=== PATIENT | male | born 1940 | race Caucasian/White ===

== ENCOUNTER 2024-08-03 19:22 | Emergency (ER) | payer OTHER, SELFPAY ==
[2024-08-03 19:26] VITALS: BP 102/57
[2024-08-03] MEDS: PERCOCET 5/325 1 TABLET PO (21:14)
[2024-08-03 22:21] LABS: % Basophils 0.3 % (0-2); % Eosinophils 0.9 % (0-6); % Immature Granulocytes 0.3 % (0-0.5); % Lymphocytes 11.8 % (20.5-51.1); % Monocytes 7.9 % (1.7-9.3); % Neutrophils 78.8 % (42.2-75.2); Absolute Eosinophils 0.1 10^3/uL (0-0.7); Absolute Lymphocytes 1.5 10^3/uL (1.2-3.4); Absolute Neutrophils 10.1 10^3/uL (1.4-6.5); Hematocrit 40.1 % (39.0-52.0); Mean Corp Hgb Conc. 34.9 g/dL (33.0-37.0); Mean Corpuscular Hgb 31.4 pg (27.0-31.0); Mean Corpuscular Volume 89.9 fL (80.0-94.0); Mean Platelet Volume 10.9 fL (7.4-10.4); Nucleated Red Blood Cells % 0 % (-); Platelet Count 130 10^3/uL (130-400); Red Blood Cell Count 4.46 10^6/uL (4.70-6.10); Red Cell Dist. Width 12.7 % (11.5-14.5); White Blood Cell Count 12.9 10^3/uL (4.8-10.8)
[2024-08-03 22:31] LABS: ALT (SGPT) 20 U/L (0-50); AST (SGOT) 22 U/L (17-59); Albumin 4.1 g/dl (3.5-5.0); Alkaline Phosphatase 69 U/L (38-126); Blood Urea Nitrogen 22 mg/dl (9-20); Calcium 9.2 mg/dl (8.4-10.2); Carbon Dioxide 25 mmol/L (22-30); Chloride 105 mmol/L (98-107); Glucose 101 mg/dl (70-99); Potassium 3.8 mmol/L (3.5-5.1); Sodium 137 mmol/L (135-145); Total Bilirubin 0.5 mg/dl (0.2-1.3); Total Protein 6.4 g/dl (6.3-8.2); eGFR > 60.00
[2024-08-03] MEDS: TORADOL 15 MG IV (22:41)
--- NOTE | 2024-08-03 23:21 | ED.MUSCINJ ---
HPI-Injury
General
Chief Complaint: Musculo-Skeletal Complaint
Source: patient
Exam Limitations: none
Time Seen by Provider: 08/03/24 20:18
Nursing documentation reviewed up to this point in time: agreed with
History of Present Illness-Injury
Is this injury a work related problem?: No
Is pt an associate of [facility]/[place]?: No
Initial Injury comments:
Patient to ED wtih complaint of right knee pain. Symptoms started yesterday. Denies fever/chills. NO history of trauma. Brought to ED by spouse for evall
Past History
Past History
ED Past Medical History: CAD and VA
ED Past Surgical History: Cardiac (Stents)
Social History
Tobacco: Non-smoker
Alcohol: None
Drug: None
Personal:
Living: with family
Employment: Retired
Family History
Family History: Other (Noncontributory)
Review of Systems
Review of Systems
Allergies reviewed?: Yes
All Other Systems: ROS reviewed and negative except as documented in HPI and ROS
Constitutional: Reports no symptoms
EENT: Reports no symptoms
Respiratory: Reports no symptoms
Cardiac: Reports no symptoms
ABD/GI: Reports no symptoms
Musculoskeletal: Reports joint pain (RIght knee pain)
Skin: Reports no symptoms
Neurological: Reports no symptoms
Psychiatric: Reports no symptoms
Musculoskeletal Injury Exam
Musculoskeletal Injury Exam
Right Knee:
Pain with Movement?: Moderate
Tender to palpation?: Moderate
Soft tissue swelling?: None
External deformity and angulation?: None
Joint effusion?: None
Contusion?: None
Hematoma-local bleeding into tissue?: None
Strain- Sprain- Tear (Connective tissue injury)?: None
Crepitus with movement?: No
Joint instability?: No
Malalignment/deformity?: No
Range of motion: Limited
Distal skin color and temperature: normal-warm & good color
Capillary Refill: normal
Normal distal neurovascular exam?: Yes
Peripheral Pulses: posterior tibial (right): 3+ and dorsalis pedis (right): 3+
Phy Exam
General Physical Exam
General Presentation: well appearing and no apparent distress
General age: appears stated age
General Skin: warm and dry
General Habitus: normal
General Mental: alert
Musculoskeletal Exam
Musculoskeletal Exam: neuro vasc intact
Skin Exam
Skin Exam: normal color, warm/dry and no rash
Psychiatric Exam
Psychiatric Exam: normal mood/affect
Injury Course
Orders/Labs/Results
Orders:
Orders
08/03/24 19:33
Knee, Right 4 or More Views [CR Knee- Right 4 Or More View*] Urgent
Comment:
Reason For Exam: pain and swelling
08/03/24 21:05
Oxycodone/Acetaminophen [Percocet 5/325] 1 tablet PO NOW STA
08/03/24 22:12
Complete Blood Count/With Diff Urgent
Comprehensive Metabolic Panel Urgent
08/03/24 22:34
Ketorolac [Toradol] 15 mg IV NOW STA
08/03/24 23:25
Case Management Consult ONCE
Case Management Consult: VN/Home Care
Abnormal Lab Results
08/03/24
22:12
WBC 12.9 H 10^3/uL
(4.8-10.8)
RBC 4.46 L 10^6/uL
(4.70-6.10)
MCH 31.4 H pg
(27.0-31.0)
MPV 10.9 H fL
(7.4-10.4)
Absolute Neuts (auto) 10.1 H 10^3/uL
(1.4-6.5)
Absolute Monos (auto) 1.0 H 10^3/uL
(0.1-0.6)
Neutrophils % 78.8 H %
(42.2-75.2)
Lymphocytes % 11.8 L %
(20.5-51.1)
BUN 22 H mg/dl
(9-20)
Glucose 101 H mg/dl
(70-99)
08/03/24 22:12
08/03/24 22:12
*Radiology
Radiology exam reviewed: radiology read reviewed
*Pulse Oximetry
Patient hypoxic: no
*Critical Care Note
Total Time (30-74mins, 75-104mins- exclusive of procedures): Not Applicable
Update Note
Update Note:
Patient to ED wtih complaint of right knee pain. No history of trauma. No redness or swelling to knee. Neurovascular intact. Placed in a knee immobilizer and givn walker. Able to ambulate in dept. without difficulty. Will discharge home.
would like to speak with case management regarding home services vs patient placement in the future. Consult placed.
ED Attending Note
-
Portions of this chart may have been created with voice recognition software.� Occasional wrong word or��sound alike� substitutions may have occurred due to the inherent limitations of voice recognition software.
Discharge Plan
Departure
Patient Disposition: Home (Routine Discharge)
Date of Disposition: 08/03/24
Time of Disposition: 22:53
Patient with high blood pressure during this ER visit?: No
Condition: Good
Covid-19: Not Applicable
Discharge Problem:
Acute knee pain
Instructions: Knee Immobilizer (DC), Knee Pain (DC), Using Cold for Pain
Prescriptions:
New
hydrocodone-acetaminophen 5-325 mg tablet
1 tab PO Q4H PRN (Reason: Pain) Qty: 10 0RF
No Action
levothyroxine 50 MCG tablet
50 mcg PO MOTUTHFRSA
levothyroxine 25 MCG tablet
25 mcg PO SUWE
aspirin 81 MG tablet,delayed release (DR/EC)
81 mg PO DAILY
simvastatin 40 MG tablet
40 mg PO HS
ascorbic acid (vitamin C) [Vitamin C] 500 MG tablet
500 mg PO Q48H
multivitamin with folic acid [Tab-A-Maritza] 1 TABLET tablet
1 tab PO DAILY
Referrals:
Devaughn Gaston MD [Family Provider] - Tomorrow
Interventions
Interventions:
*Risk Screen - Suicide Last Done: 08/03/24 19:26
*General Assessment Last Done: 08/03/24 19:26
*Neglect/Abuse Screening Last Done: 08/03/24 19:26
ED- Fall Risk Assessment Last Done: 08/03/24 19:26
*ED COVID-19 Vaccine History Last Done: 08/03/24 19:26
*Nursing Disposition Last Done: 08/03/24 23:28
ED-Musculoskeletal Assessment Last Done: 08/03/24 21:23
Discharge Date and Time
Discharge Date/Time: 08/03/24 23:28
Print Language: LAO
--- NOTE | 2024-08-05 09:56 | CM ---
CM consult for VN services. CM placed a referral via [facility] to [facility].
== END 2024-08-03 23:28 | disposition home or self-care (01) ==
LOC: EMR 19:22
PROVIDERS: Nurse Practitioner; EMERGENCY PHYSICIAN Emergency Medicine; FAMILY PHYSICIAN Family Medicine
DX: M25.561 Pain in right knee (principal)
CPT/HCPCS: 99284; 96374; 29505; 73564; 80053; 85025

== ENCOUNTER 2025-04-02 19:16 | Observation (INO) | payer OTHER, SELFPAY ==
[2025-04-02 14:00] VITALS: BP 122/67
--- NOTE | 2025-04-02 15:13 | ED.GENMED ---
History of Present Illness
General
Chief Complaint: Crisis Evaluation
Source: patient and family
Exam Limitations: dementia
Time Seen by Provider: 04/02/25 15:02
History of Present Illness
History of Present Illness:
See MDM
Past History
Past History
ED Past Medical History: CAD, MD and Other (Dementia)
ED Past Surgical History: Cardiac (Stents)
Social History
Tobacco: Non-smoker
Alcohol: None
Drug: None
Personal:
Living: with family
Employment: Retired
Family History
Family History: Other (Noncontributory)
Phy Exam
Physical Exam
Physical Exam:
See MDM
Course
Orders/Labs/Results
Orders:
Orders
04/02/25 14:04
Crisis Consult Urgent
Reason for Consult: worsening dementia
04/02/25 15:23
Complete Blood Count/With Diff Urgent
Comprehensive Metabolic Panel Urgent
04/02/25 15:55
Urinalysis Reflex To Culture Urgent
Date Specimen was Collected: 04/02/25
Time Specimen was Collected: 15:27
Urine Microscopic Reflex Cult Urgent
Urine Culture Urgent
HOLLY Source: U
Specimen Description:
Date Specimen was Collected: 04/02/25
Time Specimen was Collected: 15:27
Abnormal Lab Results
04/02/25 04/02/25
15:23 15:55
RBC 4.56 L 10^6/uL
(4.70-6.10)
MPV 10.5 H fL
(7.4-10.4)
Absolute Neuts (auto) 7.8 H 10^3/uL
(1.4-6.5)
Absolute Monos (auto) 0.8 H 10^3/uL
(0.1-0.6)
Neutrophils % 76.3 H %
(42.2-75.2)
Lymphocytes % 14.0 L %
(20.5-51.1)
Chloride 109 H mmol/L
(98-107)
Glucose 110 H mg/dl
(70-99)
Ur Occult Blood Reflex 2+ A
(Negative)
Leukocyte Esterase Rfl 2+ A
(Negative)
Urine Albumin (Reflex) 1+ A
(Neg - Trace)
04/02/25 15:23
04/02/25 15:23
Vital Signs
Initial and Last Documented VS:
Initial Vital Signs
Temp Pulse Resp BP Pulse Ox
98.3 F 69 18 122/67 98
04/02/25 14:00 04/02/25 14:00 04/02/25 14:00 04/02/25 14:00 04/02/25 14:00
Last Documented Vital Signs
Temp Pulse Resp BP Pulse Ox
98.3 F 69 18 122/67 98
04/02/25 14:00 04/02/25 14:00 04/02/25 14:00 04/02/25 14:00 04/02/25 15:16
MDM/Problems Addressed
Differential Diagnosis Includes:
Note:
CHIEF COMPLAINT(S)
Concerns about dementia management and safety due to driving.
HISTORY OF PRESENT ILLNESS
The patient is an 84-year-old male with a history of dementia, presenting with behavioral issues related to his condition. Despite advice against driving, he continues to do so, posing a potential safety risk. His spouse reports he often acts
against her recommendations and expresses fear for his safety, especially at night when she feels unable to rest due to his potential actions. The patient reportedly rejects his diagnosis and is unwilling to consider alternative living arrangements.
There is an ongoing concern regarding the management of his dementia. The spouse voices significant distress about his safety and her own, secondary to his unpredictability and disregard for medical advice. Recent engagements with healthcare
professionals suggested possible psychiatric evaluation and blood work, but no emergent findings have been reported. The immediate intervention includes starting basic blood work and monitoring the patient�s condition to inform further management.
PAST MEDICAL AND SURGICAL HISTORY
Dementia.
CHRONIC MEDICAL CONDITIONS SIGNIFICANTLY AFFECTING CARE
Dementia.
ADDITIONAL HISTORY OBTAINED FROM SOURCES OTHER THAN THE PATIENT
The patients spouse provided detailed information about his behavior, safety concerns, and interactions with healthcare providers. She noted the patient�s continued driving despite recommendations otherwise and described their challenges in managing
his condition due to his non-compliance.
MEDICATIONS
The spouse mentions the patient is on a medication for dementia, though the specific medication is not identified.
PHYSICAL EXAM
General: Alert, no acute distress. Sitting in bed comfortably
Skin: Warm, dry.
Head: Normocephalic, atraumatic
Neck: Appears supple, trachea midline.
Eyes, Ears, Nose, Mouth, and Throat: Oral mucosa moist.
Cardiovascular: No signs of cyanosis
Respiratory: Respirations are non-labored.
Abdomen: Non-distended
Musculoskeletal: No deformities
Neurological: No focal neurological deficit observed.
Psychiatric: Cooperative, appropriate mood and affect.
PROBLEM LIST
Acute Problems:
- Safety concerns related to driving and dementia-related behavior
- Stress and concern of the spouse
Chronic Problems:
- Dementia
PLAN
- Initiate basic blood work and urine analysis to rule out any acute medical issues such as electrolyte imbalances or urinary tract infection.
- Engage crisis farm management agent to discuss possible interventions.
- Discuss the possibility of alternative living arrangements and manage expectations about the likelihood of home return.
- Consider admission for observation and management potential based on findings.
- Address safety concerns by assessing the patients capacity to make decisions regarding his health and well-being.
DIFFERENTIAL DIAGNOSIS
The Differential Diagnosis includes, in no particular order and is not limited to:
- Dementia-related cognitive decline
- Depression secondary to dementia
- Urinary tract infection
- Electrolyte imbalance
- Drug-induced cognitive changes
- Delirium due to other causes
- Vascular dementia
- Alzheimers disease
- Frontotemporal dementia
- Mixed dementia
04/02/25 - 15:20
The crisis team was involved, and there was an attempt to initiate a 302 involuntary commitment, but it was denied.
SUMMARY OF ENCOUNTER
The patient, an 84-year-old male with a history of dementia, presented with concerns about dementia management and safety, particularly related to his continued driving despite medical advice. His spouse reports significant distress, fearing for
both their safety due to his unpredictable behavior and disregard for medical recommendations. Given the potential safety hazard at home without 24-hour surveillance and the progression of his dementia, the decision was made to admit him to the
hospital for further evaluation and management, including placement considerations.
DISPOSITION
Admit to the hospital service for further evaluation and management.
ASSESSMENT
Likely progression of dementia causing safety concerns, particularly related to driving and behavioral issues.
PLAN
- Admit to the hospital for workup and evaluation.
- Involve case management for discussion of placement options due to safety concerns.
- Monitor and evaluate progression of dementia.
- Address potential safety hazards and management options with spouse.
MEDICAL DECISION MAKING
-Complexity of Data Reviewed: Chronic conditions affecting care include dementia. Differential diagnosis includes dementia-related cognitive decline, depression secondary to dementia, urinary tract infection, electrolyte imbalance, drug-induced
cognitive changes, delirium due to other causes, vascular dementia, Alzheimers disease, frontotemporal dementia, mixed dementia.
-Data:
Category 2
Clinical information was obtained from an independent historian, specifically the patients spouse, who provided details about his behavior and safety concerns.
Category 3
Discussion of management with other healthcare providers, including potential involvement of case management for placement due to safety hazards.
DIAGNOSIS
- Dementia without behavioral disturbance (F03.90)
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
*Pulse Oximetry
SaO2: 98
Oxygen Mode of Delivery: Room air
Patient hypoxic: no
*Critical Care Note
Total Time (30-74mins, 75-104mins- exclusive of procedures): Not Applicable
ED Attending Note
-
Portions of this chart may have been created with voice recognition software.� Occasional wrong word or��sound alike� substitutions may have occurred due to the inherent limitations of voice recognition software.
Discharge Plan
Departure
Patient Disposition: Admit
Date of Disposition: 04/02/25
Time of Disposition: 16:18
Admit to: Med/Surg
Presentation/result/management discussed w/ accepting MD/DO: Hospitalist
Discharge Problem:
Confusion, Dementia
Prescriptions:
No Action
levothyroxine 50 MCG tablet
50 mcg PO MOTUTHFRSA
levothyroxine 25 MCG tablet
25 mcg PO SUWE
aspirin 81 MG tablet,delayed release (DR/EC)
81 mg PO DAILY
simvastatin 40 MG tablet
40 mg PO HS
ascorbic acid (vitamin C) [Vitamin C] 500 MG tablet
500 mg PO Q48H
multivitamin with folic acid [Tab-A-Maritza] 1 TABLET tablet
1 tab PO DAILY
hydrocodone-acetaminophen 5-325 mg tablet
1 tab PO Q4H PRN (Reason: Pain) Qty: 10 0RF
Referrals:
Devaughn Gaston MD [Family Provider, Family Practice]
Interventions
Interventions:
*Risk Screen - Suicide Last Done: 04/02/25 14:00
*General Assessment Last Done: 04/02/25 14:00
*Neglect/Abuse Screening Last Done: 04/02/25 14:00
*ED- Fall Risk Assessment Last Done: 04/02/25 15:33
*ED COVID-19 Vaccine History Last Done: 04/02/25 15:33
ED- Neurological Assessment Last Done: 04/02/25 15:33
ED-Psychological Assessment Last Done: 04/02/25 15:33
ED Swallowing Screen Last Done: 04/02/25 15:33
Discharge Date and Time
Print Language: SERBIAN
[2025-04-02 15:32] VITALS: BMI 22.1
[2025-04-02 15:41] LABS: Hematocrit 41.7 % (39.0-52.0); Hemoglobin 13.9 g/dL (13.0-18.0); Mean Corp Hgb Conc. 33.3 g/dL (33.0-37.0); Mean Corpuscular Volume 91.4 fL (80.0-94.0); Nucleated Red Blood Cells % 0 % (-); Platelet Count 140 10^3/uL (130-400); Red Cell Dist. Width 13.1 % (11.5-14.5)
[2025-04-02 15:53] LABS: ALT (SGPT) 31 U/L (0-50); AST (SGOT) 29 U/L (17-59); Albumin 4.2 g/dl (3.5-5.0); Alkaline Phosphatase 64 U/L (38-126); Blood Urea Nitrogen 17 mg/dl (9-20); Calcium 9.2 mg/dl (8.4-10.2); Carbon Dioxide 28 mmol/L (22-30); Chloride 109 mmol/L (98-107); Estimated Creatinine Clearance 63 ml/min; Glucose 110 mg/dl (70-99); Potassium 4.1 mmol/L (3.5-5.1); Sodium 140 mmol/L (135-145); Total Protein 6.6 g/dl (6.3-8.2); eGFR > 60.00
[2025-04-02 16:09] LABS: Urine Character Clear (Clear)
[2025-04-02 16:21] LABS: Urine Squamous Cell 0-2 /LPF (Few); Urine Urothelial Cell 0-2 /LPF (FEW)
[2025-04-02 16:22] LABS: Urine White Cell 16-20 /HPF (0-5)
--- NOTE | 2025-04-02 16:30 | HPS.HSE ---
Family Physician
-
Family Physician: Devaughn Gaston
Chief Complaint
-
worsening dementia
History of Present Illness
Mr. Kenny Ferro is a 84 yo man with hx dementia, CAD s/p PCI, HLD, Hypothyroidism who was brought in to the ER after noticed he took the car
when he is not supposed to be driving. is worried about caring for patient at home.
reports having to lock doors at night. Patient hallucinates and doesn't listen to her. This has been progressive over past 6 months.
No recent fevers/chills or reports of pain. No recent falls. Patient denies using cane or walker.
Patient unable to give significant further history.
Medical History
Past Medical History
Past Medical History: Reports Other (dementia, CAD s/p PCI, HLD, Hypothyroidism )
Past Surgical History: Reports Other
Social History
Unable to obtain full social history at this time due to: Dementia
Family History
Family History: Not pertinent
Allergies / Home Medications
Allergies reflects when Allergies were last updated in [facility].
Home Medications with original date entered in [facility]
Allergy/Medication List:
Allergies
Allergy/AdvReac Type Severity Reaction Status Date / Time
No Known Allergies Allergy Verified 04/02/25 14:00
Home Medications
levothyroxine 50 mcg tablet 50 mcg PO DAILY 01/18/14
aspirin 81 mg tablet,delayed release 81 mg PO DAILY 11/25/15
simvastatin 40 mg tablet 40 mg PO HS 11/25/15
Review of Systems
-
History Source: Patient
A 12 point ROS was completed and negative except as noted: Yes
Physical Exam
Vital Signs
Vital Signs
Temp Pulse Resp BP Pulse Ox
98.3 F 69 18 122/67 98
04/02/25 14:00 04/02/25 14:00 04/02/25 14:00 04/02/25 14:00 04/02/25 15:16
Physical Exam
General: No Apparent Distress
HEENT: PERRLA
Respiratory: Clear; No Wheezes
Cardiac: S1/S2 and Regular Rhythm
GI: Soft and Non Tender
Musculoskeletal: No Edema
Skin: Warm and Dry; No Rash
Neuro: No Oriented
Psych: Calm
Laboratory Results
-
04/02/25 15:23
04/02/25 15:23
Laboratory Results
Total Bilirubin 0.4 mg/dl (0.2-1.3) 04/02/25 15:23
AST 29 U/L (17-59) 04/02/25 15:23
ALT 31 U/L (0-50) 04/02/25 15:23
Alkaline Phosphatase 64 U/L (38-126) 04/02/25 15:23
Data Reviewed
-
Diagnostic Radiology: Report Reviewed by me
Lab Data: Labs Reviewed by me
Impression/Plan
-
Mr. Kenny Ferro is a 84 yo man with hx dementia, CAD s/p PCI, HLD, Hypothyroidism who was brought in to the ER after noticed he took the car
when he is not supposed to be driving. is worried about caring for patient at home.
Triage VS: T 98.3, P 69, RR 18, BP 122/67, SpO2 98%
LABS: WBC 10.2, Hg 13.9, PLT 140, Na 140, K+ 4.1, CO2 28, Cr 0.9, Glucose 110, liver enzymes WNL
Progressive Dementia
- unable to care for patient at home. Patient danger to himself with attempt to leave house and drive
-PT/OT/ST
-CM consult
-obtain EKG to monitor QTC in case for further anti-psychotic medications
Coronary Artery Disease
Hx PCI 2009
Hyperlipidemia
-RETOUCHING OPERATOR aspirin 81mg poqd
-RETOUCHING OPERATOR Simvastatin 40mg PO QD
Hypothyroidism
-RETOUCHING OPERATOR Synthroid
Depression
-RETOUCHING OPERATOR Lexapro
DVT PPx Lovenox subQ
DNR - discussed with on admission
[2025-04-02] MEDS: SEROQUEL 12.5 MG PO (17:37)
--- NOTE | 2025-04-02 20:00 | PTCARENOTE ---
Pt arrived to [facility] from ED, pt ambulated with x1 assist from stretcher into bed. VSS, AAOx1 to self. Pt's call diggs in reach, bed alarm in place.
[2025-04-02 20:19] VITALS: BP 129/74; BMI 22.1
[2025-04-02] MEDS: ABILIFY 3 MG PO (20:44)
[2025-04-02] MEDS: ASPIR LOW (ENTERIC COATED) 81 MG PO (20:45)
[2025-04-02] MEDS: LOVENOX SC ×2 (20:45→20:48)
[2025-04-02] MEDS: LIPITOR 20 MG PO (20:46)
[2025-04-02 23:27] VITALS: BP 129/76
[2025-04-03] MEDS: SEROQUEL 12.5 MG PO (01:20)
--- NOTE | 2025-04-03 01:31 | PTCARENOTE ---
Pt continuing to get OOB without assistance, asking to go home and see his . Pt is redirectable but then attempts to get up five minutes after being placed back in bed. Pt placed in recliner in nurse's station and continues to try to get up,
saying he needs to go home. LOADER SEMICONDUCTOR DIES Padma Coronado notified, order given for 1x seroquel 12.5mg and provided to pt.
[2025-04-03] MEDS: SYNTHROID 50 MCG PO (06:33)
[2025-04-03] MEDS: LEXAPRO 10 MG PO (07:52)
[2025-04-03 08:00] VITALS: BP 111/67
--- NOTE | 2025-04-03 08:36 | W.PN.HOSP.TC ---
Addendum entered and electronically signed by Hamlet Forde MD 04/03/25 13:34:
Discussed with at bedside today. Psych consult.
Original Note:
Today's Communication/Plan
-
finance effectiveness manager and office of aging evaluation. Discharge planning
Assessment / Plan
Assessment / Plan
Physical exam:
General: Chronically ill but no apparent distress
HEENT: Normocephalic, Atraumatic and Moist Mucous Membranes
Respiratory: Clear to Auscultation; Negative Wheezes, Rales or Rhonchi
Cardiac: Regular Rhythm and S1/S2
GI: Soft, Nontender and Nondistended
Musculoskeletal: No Clubbing, No Cyanosis and No Edema
Neuro: Awake, Alert and disoriented, no neurological deficits
Psych: Calm
A/P:
Progressive Dementia
- unable to care for patient at home. Patient danger to himself with attempt to leave house and drive
-PT/OT/ST
-CM consult
-obtain EKG to monitor QTC in case for further anti-psychotic medications
- Office of aging evaluating patient today
Coronary Artery Disease
Hx PCI 2009
Hyperlipidemia
-PRINCIPAL PROCESS ENGINEER aspirin 81mg poqd
-PRINCIPAL PROCESS ENGINEER Simvastatin 40mg PO QD
Hypothyroidism
-PRINCIPAL PROCESS ENGINEER Synthroid
Depression
-PRINCIPAL PROCESS ENGINEER Lexapro
DVT PPx Lovenox subQ
DNR
Anticipated Discharge: 24 - 48 hours
Subjective/Interval History
-
Date of Service: April 03, 2025
No new complaints. Appears calm on my evaluation. No chest pain or shortness of breath.
Objective Data
-
Vital Signs:
Vital Signs
Temp Pulse Resp BP Pulse Ox
97.4 F 62 18 129/76 99
04/02/25 23:27 04/02/25 23:27 04/02/25 23:27 04/02/25 23:27 04/02/25 23:27
I&O
04/02/25 04/03/25 04/04/25
06:59 06:59 06:59
Intake Total 240 / 240
Balance 240 / 240
--- NOTE | 2025-04-03 08:55 | PTOTSP ---
Speech Language Pathology
Pt seen for cognitive-linguistic evaluation. Mod-severe cognitive deficits noted. Memory deficits noted, including long-term memory deficits. 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 Pt also with
confabulations, telling story of being in [place] around a rowdy crowd and being saved by Princess Hollins who took him to dinner. Short Blessed Test (SBT) administered. Pt with a score of 24/28 where higher score indicates greater impairment.
Pt also seen for clinical bedside swallow evaluation. P.O. trials of regular solids and thin liquids provided. Adequate mastication, bolus formation, and A-P transit noted with no oral residue. No overt signs of aspiration.
Recommend:
(1) Regular solids/thin liquids
(2) General aspiration precautions
(3) Meds as tolerated
(4) Given significant cognitive deficits, pt requires 24 hour care
(5) SOAKING TANK WORKER to sign off in this level of care. Please reconsult as indicated
[2025-04-03 10:28] VITALS: BP 123/67; PULSE 67; O2SAT 98
[2025-04-03 10:36] VITALS: BP 123/67; PULSE 69; O2SAT 98
--- NOTE | 2025-04-03 10:47 | PTOTSP ---
pt currently requires supervision to no assistance to complete simple ADLs, functional transfers, ambulation. pt is able to follow simple one step directions with 75% accuracy. per nursing, chart, pt does confabulate and believes what he tells. no
acute OT needs identified at this time, recommend 24 hour assistance due to dementia at time of d/c.
--- NOTE | 2025-04-03 12:56 | CM ---
Addendum entered by Alen Jacome 04/03/25 15:52:
CM called [facility], spoke w/ Woodrow in admissions to review patient. Woodrow shared he is familiar w/ patient as spouse toured the facility on Sunday. Per Woodrow, a shared studio is currently available, however, spouse is interested in a private
studio for patient. There is a waiting list at this time for a private studio. Woodrow stated he is willing to work w/ spouse to get patient into a private studio from the shared studio once one becomes available if she wanted to move forward.
CM spoke w/ Gerald/[employer] director to review patient. Gerald requested referral for his team to review. Referral completed in [facility].
Updated spouse who does not want [facility] as it's too far for her to drive. May consider [facility] but open to other facilities. CM offered [facility] memory care as another option.
Original Note:
Patient seen bedside w/ spouse, initial assessment completed. Patient is a 84 yo man with hx dementia, CAD s/p PCI, HLD, Hypothyroidism who was brought in to the ER after noticed he took the car when he is not supposed to be driving. Admitted
for worsening dementia.
Patient resides w/ spouse in a 2ST[facility], 2 steps to enter from the outside. Patient is independent w/ ambulation and ADLs, no DME reported. Denies SNF/HC hx.
Address, point of contact and insurance verified
PCP: Devaughn Gaston
Pharmacy: [facility]
Patient admitted obs status. [place] form verbally reviewed, copy provided, copy on chart
CM met w/ [facility] worker, Victor Manuel, who spoke w/ patient in response to a report. Per Victor Manuel, patient is able to converse but is not a sensible conversation, patient presented w/ confusion and memory deficits. Victor Manuel shared spouse was exploring
[facility] at one point but patient declined going. Victor Manuel said he would like to speak w/ spouse once she comes to the hospital but provided CM his card to give to spouse for her to give him a call. Victor Manuel stated he doesn't recommend patient going home
because it is not a safe discharge plan.
CM spoke w/ spouse outside of patient's room. Spouse was visibly overwhelmed and emotional, CM provided support. Spouse stated that patient doesn't listen to her, is being unsafe at home by driving, and she doesn't know what to do. Spouse stated she
did tour [facility] but was told patient couldn't be accepted because he has to agree to admit which he is not. CM shared [employer] worker's concerns and spouse agreed that patient needs to be placed in a memory care facility. Spouse prefers somewhere
close to [place]. Spouse shared this will be difficult because patient will refuse and would want to go home w/ her. CM provided [employer] worker's card and advised for her to follow up w/ a call as requested.
Plan: Memory care placement
[2025-04-03 15:24] VITALS: BP 111/63
--- NOTE | 2025-04-03 15:24 | CON.MD ---
Consultation - Medical
-
patient seen chart reviewed. discussed with nursing and jameetedkahlil crisis counselor who saw the patient and his in the ER. this consult being done today april 03 2025. patient is an 84 year old male w hx dementia whose cognitive impairment has
been escalating. he sees a neurologist who wanted to 302 commit him yesterday but the commitment was not upheld. while patient is increasingly active trying to leave the house at night and getting in the car risking him driving he was not felt to
present an imminent risk to self or others and was hospitalized presumably to get the area office on aging involved as with whom our crisis center yesterday is unable to have him at home. he has apparently been rx with lexapro (reduce libido?)
and was also on abilify 3 mg q hs presumably for behavioral issues of dementia. does not appear to be depressed in fact he appears quite cheerful. he is unable to provide any history and even when he spouts sentences they are non sequiturs. i
asked if he had any children and he told me the nurse standing next to me was his daughter. he could not tell me how many children he has 'twelve or thirteen. ' complained he has been hypersexual . he does not sleep appetite is good. he is worse
at night than during the daytime hours. this consult ordered for ? medical decision making capacity
past psych hx see above
medical hx patient w hx cad/ mi in the past. has been dx dementia hypothyroid hgb 13.9 chemistry ok qtc 423 ruine okay b12 folate tsh are normal hx hld
fh non contributory
social resides with retired patient unable to tell me his employ prior to assisted unable to tellme howmany children he has.
mse alert but oriented only to person. speech rambling and tangential disorganized thought process mood is cheerful affect inappropriately materials planning manager l cognition impaired insight judgment lacking
dx dementia with behavioral disturbance
plan given the serious level of cognitive impairment this patient does NOT have medical decision making capacity. will order one to one for now as patient already has been wandering the floor and cannot be made to understand he needs to remain in
his room and ambulate accompanied by staff (he is fairly spritely but cannot be trusted to remain safe at this point. left abilify in place and left lexapro as well as it may function to reduce libido as well. psych will check in on him tomorrow
[2025-04-03] MEDS: LOVENOX 40 MG SC (16:59)
[2025-04-03] MEDS: ASPIR LOW (ENTERIC COATED) 81 MG PO (16:59)
[2025-04-03] MEDS: LIPITOR 20 MG PO (21:10)
[2025-04-03] MEDS: ABILIFY 3 MG PO (21:10)
[2025-04-04 04:17] VITALS: BP 107/58
--- NOTE | 2025-04-04 04:17 | PTCARENOTE ---
Patient refused vitals to be taken until 04:15 am.
[2025-04-04] MEDS: SYNTHROID 50 MCG PO (05:52)
[2025-04-04] MEDS: LEXAPRO 10 MG PO (07:20)
--- NOTE | 2025-04-04 07:57 | W.PN.HOSP.TC ---
Today's Communication/Plan
-
One-to-one observation. Discharge planning
Assessment / Plan
Assessment / Plan
Physical exam:
General: Chronically ill but no apparent distress
HEENT: Normocephalic, Atraumatic and Moist Mucous Membranes
Respiratory: Clear to Auscultation; Negative Wheezes, Rales or Rhonchi
Cardiac: Regular Rhythm and S1/S2
GI: Soft, Nontender and Nondistended
Musculoskeletal: No Clubbing, No Cyanosis and No Edema
Neuro: Awake, Alert and disoriented, no neurological deficits
Psych: Calm
A/P:
Progressive Dementia with behavioral disturbance
- unable to care for patient at home. Patient danger to himself with attempt to leave house and drive. I talked to yesterday.
-PT/OT/ST
-obtained EKG to monitor QTC in case for further anti-psychotic medications and QTc acceptable at 423 ms.
- Office of aging evaluating patient yesterday
-On Abilify 3 mg nightly
- I asked psychiatry to see him to evaluate for decision capacity yesterday and they feel he does not have capacity and I certainly concur. Appreciated psychiatry consult.
- industrial engineering manager for discharge disposition
Coronary Artery Disease
Hx PCI 2009
Hyperlipidemia
-ELEVATOR SERVICE TECHNICIAN aspirin 81mg poqd
-ELEVATOR SERVICE TECHNICIAN Simvastatin 40mg PO QD--> currently on atorvastatin 20 mg p.o. nightly
Hypothyroidism
-ELEVATOR SERVICE TECHNICIAN Synthroid 50 mcg p.o. daily
Depression
-ELEVATOR SERVICE TECHNICIAN Lexapro 10 mg p.o. daily
DVT PPx Lovenox subQ
DNR
Anticipated Discharge: 24 - 48 hours
Subjective/Interval History
-
Date of Service: April 04, 2025
Patient appears calm again this morning. Denies chest pain or shortness of breath. He is on one-to-one observation ordered by psychiatry yesterday.
Objective Data
-
Vital Signs:
Vital Signs
Temp Pulse Resp BP Pulse Ox
97.9 F 63 16 107/58 97
04/04/25 04:17 04/04/25 04:17 04/04/25 04:17 04/04/25 04:17 04/04/25 04:17
I&O
04/03/25 04/04/25 04/05/25
06:59 06:59 06:59
Intake Total 240 / 240
Balance 240 / 240
[2025-04-04 09:03] VITALS: BP 116/72
--- NOTE | 2025-04-04 13:22 | W.PN.UPDATE ---
Update Note
Progress Note Update
Patient seen by me on 04/04/2025 from 11:10am-11:25am
Psychiatry follow up. Chart reviewed. Determined to lack capacity for medical decision making yesterday by our team. Today patient is pleasant on approach and states he is feeling well. He does not know that we are at [facility]. He thinks
it is 1973. He knows the month is March. He is unable to explain why he is here, his medical history, or what care/treatment he needs. He denies pain or discomfort. His 1:1 states he has been manageable this morning and responsive to redirection
but that he can become restless. He received seroquel 12.5mg as a now order overnight.
MSE- pleasant, good eye contact. disorganized and confused. oriented to self. reports feeling 'good.' poor insight/judgement.
A/P- 84 yo male with dementia with behavioral disturbance. Continues to lack capacity for medical decision making. Continue 1:1. Continue Abilify and Lexapro at current doses. If he responded well to low dose seroquel last evening, it could be a
reasonable PRN or can be considered in the future to replace Abilify. Will see how he does overnight and consider change tomorrow if needed.
[2025-04-04 15:07] VITALS: BP 118/66
[2025-04-04] MEDS: ASPIR LOW (ENTERIC COATED) 81 MG PO (17:45)
[2025-04-04] MEDS: LOVENOX 40 MG SC (17:45)
[2025-04-04] MEDS: ABILIFY 3 MG PO (21:57)
[2025-04-04] MEDS: LIPITOR 20 MG PO (21:58)
[2025-04-04 23:09] VITALS: BP 124/70
[2025-04-05] MEDS: SYNTHROID 50 MCG PO (05:40)
[2025-04-05 07:00] VITALS: BP 145/71
[2025-04-05] MEDS: LEXAPRO 10 MG PO (07:06)
--- NOTE | 2025-04-05 08:48 | W.PN.HOSP.TC ---
Today's Communication/Plan
-
Discharge planning
Assessment / Plan
Assessment / Plan
Physical exam:
General: Chronically ill but no apparent distress
HEENT: Normocephalic, Atraumatic and Moist Mucous Membranes
Respiratory: Clear to Auscultation; Negative Wheezes, Rales or Rhonchi
Cardiac: Regular Rhythm and S1/S2
GI: Soft, Nontender and Nondistended
Musculoskeletal: No Clubbing, No Cyanosis and No Edema
Neuro: Awake, Alert and disoriented, no neurological deficits
Psych: Calm
A/P:
Progressive Dementia with behavioral disturbance
- unable to care for patient at home. Patient danger to himself with attempt to leave house and drive. I talked to prior.
-PT/OT/ST
-obtained EKG to monitor QTC in case for further anti-psychotic medications and QTc acceptable at 423 ms.
- Office of aging evaluated the patient
-On Abilify 3 mg nightly
- I asked psychiatry to see him to evaluate for decision capacity and they feel he does not have capacity and I certainly concur. Appreciated psychiatry consult.
- Discussed with RN at bedside and also nursing home social worker on one-to-one and he appears to be stable behavioral bled[place] at the moment
- imaging account manager for discharge disposition
Coronary Artery Disease
Hx PCI 2009
Hyperlipidemia
-EDUCATION SUPERVISOR aspirin 81mg poqd
-EDUCATION SUPERVISOR Simvastatin 40mg PO QD--> currently on atorvastatin 20 mg p.o. nightly
Hypothyroidism
-EDUCATION SUPERVISOR Synthroid 50 mcg p.o. daily
Depression
-EDUCATION SUPERVISOR Lexapro 10 mg p.o. daily
DVT PPx Lovenox subQ
DNR
Anticipated Discharge: 24 - 48 hours
Subjective/Interval History
-
Date of Service: April 05, 2025
Patient denies any chest pain or shortness of breath. Patient is calm this morning and tired since he did not sleep much last night.
Objective Data
-
Vital Signs:
Vital Signs
Temp Pulse Resp BP Pulse Ox
97.2 F 67 18 145/71 97
04/05/25 07:00 04/05/25 07:00 04/05/25 07:00 04/05/25 07:00 04/05/25 07:00
I&O
04/04/25 04/05/25 04/06/25
06:59 06:59 06:59
Intake Total 2099
Balance 2099
--- NOTE | 2025-04-05 10:11 | W.PN.UPDATE ---
Update Note
Progress Note Update
Patient seen by me on 04/05/2025 from 10;11am-10:12am
Psychiatry follow up. Chart reviewed. Patient reports feeling well this morning. He is without complaints and remains pleasantly confused. With help, he is able to arrive at the year 2024 but he remains unaware that he is at [facility]. He
does not know who the president is. He cannot explain why he has a 1:1. Per 1:1 patient has been cooperative and responsive to redirection. He had some difficulty sleeping last night but due to noise from roommate. Per nursing patient does well with
his current 1:1 but will try to leave his room otherwise. Discussed trial of melatonin to help with sleep.
MSE- pleasant, good eye contact. disorganized and confused. oriented to self. reports feeling 'good.' poor insight/judgement.
A/P- 84 yo male with dementia with behavioral disturbance. Continues to lack capacity for medical decision making. Continue 1:1 for safety. Continue Abilify and Lexapro at current doses. Trial of melatonin 3mg HS. Awaiting memory care placement.
Will continue to follow peripherally.
[2025-04-05 15:00] VITALS: BP 107/59
[2025-04-05] MEDS: LOVENOX 40 MG SC (17:10)
[2025-04-05] MEDS: ASPIR LOW (ENTERIC COATED) 81 MG PO (17:10)
[2025-04-05] MEDS: MELATONIN 3 MG PO (22:41)
[2025-04-05] MEDS: LIPITOR 20 MG PO (22:41)
[2025-04-05] MEDS: ABILIFY 3 MG PO (22:41)
[2025-04-05 23:00] VITALS: BP 115/65
[2025-04-06] MEDS: SYNTHROID 50 MCG PO (06:08)
[2025-04-06 07:44] VITALS: BP 106/77
[2025-04-06] MEDS: LEXAPRO 10 MG PO (08:36)
--- NOTE | 2025-04-06 10:29 | W.PN.HOSP.TC ---
Today's Communication/Plan
-
medically ready for d/c when placement found
Assessment / Plan
Assessment / Plan
Pt is an 84 year old male
Progressive Dementia with behavioral disturbance- unable to care for patient at home. Patient danger to himself with attempt to leave house and drive--placement--apprec psych
Coronary Artery Disease
Hx PCI 2009
Hyperlipidemia
-CONTRACT TECHNICAL WRITER aspirin 81mg poqd
-CONTRACT TECHNICAL WRITER Simvastatin 40mg PO QD--> currently on atorvastatin 20 mg p.o. nightly
Hypothyroidism
-CONTRACT TECHNICAL WRITER Synthroid 50 mcg p.o. daily
Depression
-CONTRACT TECHNICAL WRITER Lexapro 10 mg p.o. daily
DVT PPx Lovenox subQ
DNR
Anticipated Discharge: Today
Subjective/Interval History
-
Date of Service: April 06, 2025
pt without c/o
Objective Data
-
Vital Signs:
max temp for 24 hours
04/05/25
15:00
Temp 98.2 F
Vital Signs
Temp Pulse Resp BP Pulse Ox
97.6 F 58 16 106/77 97
04/06/25 07:44 04/06/25 07:44 04/06/25 07:44 04/06/25 07:44 04/06/25 07:44
I&O
04/05/25 04/06/25 04/07/25
06:59 06:59 06:59
Intake Total 2099
Balance 2099
Review of Systems
-
Unable to obtain full review of systems at this time due to: Dementia
Physical Exam
-
General: Well Developed, Well Nourished and No Apparent Distress
HEENT: Normocephalic and Atraumatic
Respiratory: Clear to Auscultation; Negative Wheezes
Cardiac: Regular Rhythm and S1/S2
GI: Soft, Nontender, Nondistended and Normal Bowel Sounds
Musculoskeletal: No Clubbing, No Cyanosis and No Edema
Neuro: Awake
Psych: Calm and Apparent Dementia
[2025-04-06 15:40] VITALS: BP 123/65
[2025-04-06] MEDS: LOVENOX 40 MG SC (17:05)
[2025-04-06] MEDS: ASPIR LOW (ENTERIC COATED) 81 MG PO (17:05)
--- NOTE | 2025-04-06 20:00 | PTCARENOTE ---
Pt has been on a 1:1 all shift d/t confusion and inability to redirect. Pt was pleasant and cooperative at the beginning of the shift, listening to staff. At 1999 pt decided to get OOB and get dressed, asking nursing staff to show him the way out
because 'my and my son are sick at home. Somebody could '. Nursing staff attempted to reorient pt and called pt's to have her explain to him that she was safe at home. Pt still insisting to leave and attempted to push past nursing
staff to leave room. Pt stating that 'they're trying to kill me' when prompted to sit back down in his bed. Pt asking to call the police; this RN asked pt if he would like to speak to security, which pt agreed to. Connor carson called on pt,
security came to unit and assisted in putting pt in recliner. Pt sat in recliner with 1:1 at nurse's station, agreed to take evening medications. IM Zyprexa ordered stat by JENNIFER Beal, but pt was being cooperative and did not require the dose of IM
Zyprexa. Pt placed back in bed, bed alarm in place with 1:1 staff.
--- NOTE | 2025-04-06 20:28 | W.PN.UPDATE ---
Update Note
Progress Note Update
code purple
Patient agitated wanting to go home, fearful stating 'they are trying to kill me ' at the same time he trusts few other staff. With the help of Security patient was placed on [facility], patient was very agitated at that time. Zyprexa 5mg IM x1
ordered (didn't had to administer) .
patient able to reorient and is calm in Gerichair with staff at the side.
Advised RN to give HS medications early while he is calm.
denies any pain or distress.
[2025-04-06] MEDS: ABILIFY 3 MG PO (20:31)
[2025-04-06] MEDS: MELATONIN 3 MG PO (20:31)
[2025-04-06] MEDS: LIPITOR 20 MG PO (20:31)
[2025-04-06 23:03] VITALS: BP 112/64
[2025-04-07] MEDS: SYNTHROID 50 MCG PO (06:05)
[2025-04-07 07:33] VITALS: BP 117/69
[2025-04-07] MEDS: LEXAPRO 10 MG PO (08:35)
--- NOTE | 2025-04-07 10:09 | W.PN.HOSP.TC ---
Today's Communication/Plan
-
see AP
Assessment / Plan
Assessment / Plan
A/P:
# Progressive Dementia with behavioral disturbance
Pt awake and conversant
unable to care for patient at home. Patient danger to himself with attempt to leave house and drive
apprec psych, cont Abilify 3 mg adjust time to 8 pm
Cont melatonin adjust to 5 mg HS and at 8 pm
Cont current one to one
Pending placement
# Coronary Artery Disease
# Hx PCI 2009
# Hyperlipidemia
Cont PROOFING MACHINE OPERATOR aspirin 81mg
PROOFING MACHINE OPERATOR Simvastatin 40mg PO QD -> currently on atorvastatin 20 mg p.o. nightly
# Hypothyroidism
PROOFING MACHINE OPERATOR Synthroid 50 mcg p.o. daily
# Depression
PROOFING MACHINE OPERATOR Lexapro 10 mg p.o. daily
DVT PPx Lovenox subQ
DNR
Anticipated Discharge: > 48 hours
Subjective/Interval History
-
Date of Service: April 07, 2025
Objective Data
-
Vital Signs:
Vital Signs
Temp Pulse Resp BP Pulse Ox
36.5 C 59 16 117/69 99
04/07/25 07:33 04/07/25 07:33 04/07/25 07:33 04/07/25 07:33 04/07/25 07:33
I&O
04/06/25 04/07/25 04/08/25
06:59 06:59 06:59
Intake Total 2159 / 2159 1260 / 1260
Balance 2159 1260 / 1260
Review of Systems
-
Unable to obtain full review of systems at this time due to: Dementia
Physical Exam
-
General: Well Developed, Well Nourished, No Apparent Distress, Comfortable and Conversant
HEENT: Normocephalic and Atraumatic
Respiratory: Clear to Auscultation and Non Labored Respirations; Negative Wheezes or Accessory Resp Muscle Use
Cardiac: Regular Rhythm and S1/S2
GI: Soft, Nontender, Nondistended and Normal Bowel Sounds
Musculoskeletal: No Clubbing, No Cyanosis and No Edema
Neuro: Awake
Psych: Calm and Apparent Dementia
[2025-04-07 10:35] VITALS: BP 118/75; PULSE 61; O2SAT 97
[2025-04-07 16:03] VITALS: BP 145/72
[2025-04-07] MEDS: ASPIR LOW (ENTERIC COATED) 81 MG PO (17:14)
[2025-04-07] MEDS: LOVENOX 40 MG SC (17:14)
--- NOTE | 2025-04-07 17:20 | CM ---
Patient remains on 1:1 .
PT indicated 24 supervision.
Spoke with Woodorw from [facility] Faxed clinical he requested .
[facility] to send some one to evaluate him
Spoke with support given. requests [facility].
PLAN to [facility] after accepted.
[2025-04-07] MEDS: LIPITOR 20 MG PO (21:12)
[2025-04-07] MEDS: ABILIFY 3 MG PO (21:12)
[2025-04-07] MEDS: MELATONIN 5 MG PO (22:11)
[2025-04-07 22:19] VITALS: BP 117/77
--- NOTE | 2025-04-07 23:07 | W.PN.UPDATE ---
Update Note
Progress Note Update
Pt seen this afternoon by me to assess for need for 1:1, medication changes. Staff at bedside reports a code purple called due to pts efforts to leave the floor.
On my exam pt is eceedingly pleasant and courtly, interacting with broad smile as if we are old friends Talks about 1:[address] 'we're good together,' Has no idea where he is, though says 'it's somewhere medical' Cannot tell me anything
about his life outside of here, except that he has '40 to 50 children'
Encouraged to follow the requests of hospital staff and remain in room until better arrangements can be made for him
--- NOTE | 2025-04-07 23:30 | PTCARENOTE ---
Tiral 1:1 observation dc'd at approx 2300. Patient sleeping in bed.
--- NOTE | 2025-04-08 04:59 | PTCARENOTE ---
Patient woke up around 0400 and requested to use bathroom. Patient was unsteady on feet. RN held onto patient to and from the bathroom. Patient settled back into bed, but began setting off the bed alarm and getting/trying to get OOB. PCT stayed with
patient until he was able to return to sleep after 10-15 mins.
[2025-04-08] MEDS: SYNTHROID 50 MCG PO (06:18)
[2025-04-08 07:40] VITALS: BP 129/70
[2025-04-08] MEDS: LEXAPRO 10 MG PO (08:49)
--- NOTE | 2025-04-08 09:58 | W.PN.HOSP.TC ---
Today's Communication/Plan
-
see A/P
Assessment / Plan
Assessment / Plan
A/P:
# Progressive Dementia with behavioral disturbance
Pt awake and conversant, pleasant
unable to care for patient at home. Patient danger to himself with attempt to leave house and drive
apprec psych, cont Abilify 3 mg adjusted to 8 pm
Cont melatonin 5 mg adjust to 9 pm
monitor off one to one for dispo planning. Pending placement
# Coronary Artery Disease
# Hx PCI 2009
# Hyperlipidemia
Cont INSPECTOR OUTSIDE STEAM DISTRIBUTION aspirin 81mg
INSPECTOR OUTSIDE STEAM DISTRIBUTION Simvastatin 40mg PO QD -> currently on atorvastatin 20 mg p.o. nightly
# Hypothyroidism
INSPECTOR OUTSIDE STEAM DISTRIBUTION Synthroid 50 mcg p.o. daily
# Depression
INSPECTOR OUTSIDE STEAM DISTRIBUTION Lexapro 10 mg p.o. daily
DVT PPx Lovenox subQ
DNR
DW RN
Anticipated Discharge: 24 - 48 hours
Subjective/Interval History
-
Date of Service: April 08, 2025
Objective Data
-
Vital Signs:
Vital Signs
Temp Pulse Resp BP Pulse Ox
36.7 C 58 20 129/70 100
04/08/25 07:40 04/08/25 07:40 04/08/25 07:40 04/08/25 07:40 04/08/25 07:40
I&O
04/07/25 04/08/25 04/09/25
06:59 06:59 06:59
Intake Total 1260 / 1260 1200 / 1200
Balance 1260 / 1260 1200 / 1200
Review of Systems
-
Unable to obtain full review of systems at this time due to: Dementia
Physical Exam
-
General: Well Developed, Well Nourished, No Apparent Distress, Comfortable and Conversant
HEENT: Normocephalic and Atraumatic
Respiratory: Clear to Auscultation and Non Labored Respirations; Negative Wheezes or Accessory Resp Muscle Use
Cardiac: Regular Rhythm and S1/S2
GI: Soft, Nontender, Nondistended and Normal Bowel Sounds
Musculoskeletal: No Clubbing, No Cyanosis and No Edema
Neuro: Awake
Psych: Calm and Apparent Dementia
--- NOTE | 2025-04-08 11:47 | CM ---
CM reviewed chart, spoke with [facility] admissions, reports Jada will be coming out to evaluate patient today, unsure of a time at this time. Patients seen in hallway, upset with patient sitting in hospital and process of placement
and would like patient out of hospital today. CM offered support, discussed spoke with [facility] today who will be coming out to assess, explained process of placement to a new Memory Care Facility unfortunately can take a few days once facility
accepts. understanding, reports she does not want to make patient upset by seeing him.
CM received additional call from Anjelica at [facility], will be out to assess patient today or tomorrow, requesting clinicals faxed to [phone]. Anjelica reports she has been speaking with patients son and will be calling now.
Plan; [facility] and Bonny coming to assess for Memory Care Placement
--- NOTE | 2025-04-08 13:33 | W.PN.UPDATE ---
Update Note
Progress Note Update
patient seen chart reviewed. patient is very supervisor mill but also very confused. he is on one to one to keep him wandering and risking falling. did not amend medications which he is tolerating . no apparent adverse effects and as stated he is quite
pleasant. disposition being sought.
[2025-04-08] MEDS: ZYPREXA ZYDIS (ORALLY DISINTEGRATING) 5 MG PO (15:05)
[2025-04-08 15:40] VITALS: BP 143/73
[2025-04-08] MEDS: LOVENOX 40 MG SC (17:24)
[2025-04-08] MEDS: ABILIFY 3 MG PO (19:09)
--- NOTE | 2025-04-08 21:00 | PTCARENOTE ---
At approx 1910, patient became very upset and aggitated. He is focused on leaving, saying his and son are sick and he needs drive home or take the bus. He is standing in the door way trying to go into the hallway, yelling out for people to
help. Offered to have him speak with , he said that he just did 20 minutes ago. Unable to redirect to have a seat in his room. Administered scheduled Abilify. Notified COMMISSIONED SALES ASSOCIATE via TT. Additional PRN medication not ordered. COMMISSIONED SALES ASSOCIATE instructed to let
Abilify kick in. Mary chair order requested and placed by COMMISSIONED SALES ASSOCIATE. [facility] and brought into nursing station where he was banging on tray and yelling 'help' He did eventually stop banging and yelling, but did remain focused on
leaving. Beverages and toileting provided regularly.
[2025-04-08] MEDS: MELATONIN 5 MG PO (21:38)
[2025-04-08 23:34] VITALS: BP 120/72
--- NOTE | 2025-04-09 03:30 | PTCARENOTE ---
[facility] at approx 0115. He was able to return to his room, lay in bed and fall asleep without incident.
[2025-04-09 08:44] VITALS: BP 141/78
--- NOTE | 2025-04-09 09:52 | W.PN.HOSP.TC ---
Today's Communication/Plan
-
see A/P
Assessment / Plan
Assessment / Plan
A/P:
# Progressive Dementia with behavioral disturbance
Pt awake and conversant, pleasant
unable to care for patient at home. Patient danger to himself with attempt to leave house and drive
apprec psych, recc to cont current Abilify 3 mg, adjust time to 7 pm
Cont melatonin 5 mg adjusted to 9 pm
cont one to one for behavioral disturbance/owning
Pending placement
# Coronary Artery Disease
# Hx PCI 2009
# Hyperlipidemia
Cont SALVAGE INSPECTOR aspirin 81mg
SALVAGE INSPECTOR Simvastatin 40mg PO QD -> currently on atorvastatin 20 mg p.o.
change routine meds to the morning to avoid excessive stimulation in the evening
# Hypothyroidism
SALVAGE INSPECTOR Synthroid 50 mcg p.o. daily
# Depression
SALVAGE INSPECTOR Lexapro 10 mg p.o. daily
DVT PPx Lovenox subQ
DNR
DW RN
Anticipated Discharge: 24 - 48 hours
Subjective/Interval History
-
Date of Service: April 09, 2025
Objective Data
-
Vital Signs:
Vital Signs
Temp Pulse Resp BP Pulse Ox
36.5 C 60 16 141/78 99
04/09/25 08:44 04/09/25 08:44 04/09/25 08:44 04/09/25 08:44 04/09/25 08:44
I&O
04/08/25 04/09/25 04/10/25
06:59 06:59 06:59
Intake Total 1200 / 1200 700 / 700
Balance 1200 / 1200 700 / 700
Review of Systems
-
Unable to obtain full review of systems at this time due to: Dementia
Physical Exam
-
General: Well Developed, Well Nourished, No Apparent Distress, Comfortable and Conversant
HEENT: Normocephalic and Atraumatic
Respiratory: Clear to Auscultation, Wheezes and Non Labored Respirations; Negative Accessory Resp Muscle Use
Cardiac: Regular Rhythm and S1/S2
GI: Soft, Nontender, Nondistended and Normal Bowel Sounds
Musculoskeletal: No Clubbing, No Cyanosis and No Edema
Neuro: Awake
Psych: Calm and Apparent Dementia
[2025-04-09] MEDS: SYNTHROID 50 MCG PO (10:09)
[2025-04-09] MEDS: ASPIR LOW (ENTERIC COATED) 81 MG PO (11:37)
[2025-04-09] MEDS: LIPITOR 20 MG PO (11:37)
[2025-04-09] MEDS: LEXAPRO 10 MG PO (11:37)
--- NOTE | 2025-04-09 11:49 | W.PN.UPDATE ---
Update Note
Progress Note Update
patient seen chart reviewed. spoke with nursing. patient had a very difficult afternoon yesteday insisting that he had to go to work etc etc. he was very difficult to calm and received a prn of zyprexa. this afternoon he is sitting with the rep
from [employer] and was quite pleasant. ate most of his breakfast 'i don't like park' which he left. will add a small noon time dose of abilify just one mg and see if that helps with afternoon agitation. if not sufficient would increase to 2 mg.
will follow
[2025-04-09] MEDS: ABILIFY 1 MG PO (13:04)
--- NOTE | 2025-04-09 15:54 | CM ---
CM reviewed chart, Pradeep from [facility] out to assess patient, able to accept. DME forms faxed to CM for completed. Facility will require physical scripts provided with patient, can accept patient until 2:00 p.m. tomorrow. Pradeep reports
met with facility earlier and will require admission paperwork completed prior to acceptance. Phone call to , Lisbeth, aware [facility] can accept, working on paperwork needed. would like to be present prior to discharge, patient will
require ambulance transport. TT to Hospitalist with update. CM will continue to follow for all discharge planning needs.
Plan; [facility] tentative accept 04/10
[2025-04-09 16:10] VITALS: BP 122/66
[2025-04-09] MEDS: LOVENOX 40 MG SC (17:23)
[2025-04-09] MEDS: ABILIFY 3 MG PO (19:58)
[2025-04-09] MEDS: ABILIFY PO (19:58)
[2025-04-09] MEDS: MELATONIN 5 MG PO (21:41)
[2025-04-09 23:00] VITALS: BP 126/68
--- NOTE | 2025-04-09 23:30 | PTCARENOTE ---
Patient calm and pleasant with no outward signs of distress. Correctly identified himself, the year, and that's he's in the hospital. 1:1 dc'd at 11pm. Patient sleeping in bed, appears comfortable with even chest rise and fall. Bed alarm in place.
[2025-04-10] MEDS: SYNTHROID 50 MCG PO (05:22)
[2025-04-10 07:20] VITALS: BP 123/69
[2025-04-10] MEDS: ASPIR LOW (ENTERIC COATED) 81 MG PO (08:26)
[2025-04-10] MEDS: LIPITOR 20 MG PO (08:26)
[2025-04-10] MEDS: LEXAPRO 10 MG PO (08:27)
--- NOTE | 2025-04-10 09:02 | W.PN.HOSP.TC ---
Today's Communication/Plan
-
placement to dementia unit
Assessment / Plan
Assessment / Plan
A/P:
# Progressive Dementia with behavioral disturbance
Pt awake and conversant, pleasant
unable to care for patient at home. Patient danger to himself with attempt to leave house and drive
apprec psych, current Abilify 3 mg at 8 pm, added Abilify 1 mg at noon
Cont melatonin 5 mg at 9 pm
cont one to one for behavioral disturbance/sundowning
For memory care placement
# Coronary Artery Disease
# Hx PCI 2009
# Hyperlipidemia
Cont SAND TECHNOLOGIST aspirin 81mg
SAND TECHNOLOGIST Simvastatin 40mg PO QD -> currently on atorvastatin 20 mg p.o.
changed routine meds to the morning to avoid excessive stimulation in the evening
# Hypothyroidism
SAND TECHNOLOGIST Synthroid 50 mcg p.o. daily
# Depression
SAND TECHNOLOGIST Lexapro 10 mg p.o. daily
DVT PPx Lovenox subQ
DNR
DW Psych
DW RN
DW CM
Anticipated Discharge: Today
Subjective/Interval History
-
Date of Service: April 10, 2025
Objective Data
-
Vital Signs:
Vital Signs
Temp Pulse Resp BP Pulse Ox
36.6 C 83 16 123/69 96
04/10/25 07:20 04/10/25 07:20 04/10/25 07:20 04/10/25 07:20 04/10/25 07:20
I&O
04/09/25 04/10/25 04/11/25
06:59 06:59 06:59
Intake Total 700 / 700 1560 / 1560
Balance 700 / 700 1560 / 1560
Review of Systems
-
Unable to obtain full review of systems at this time due to: Dementia
Physical Exam
-
General: Well Developed, Well Nourished, No Apparent Distress, Comfortable and Conversant
HEENT: Normocephalic and Atraumatic
Respiratory: Clear to Auscultation, Wheezes and Non Labored Respirations; Negative Accessory Resp Muscle Use
Cardiac: Regular Rhythm and S1/S2
GI: Soft, Nontender, Nondistended and Normal Bowel Sounds
Musculoskeletal: No Clubbing, No Cyanosis and No Edema
Neuro: Awake
Psych: Calm and Apparent Dementia
--- NOTE | 2025-04-10 11:01 | CM ---
CM reviewed chart, DME completed, signed by Hospitalist, sent to [facility]. CM spoke with Prosthodontist/Educator, Pradeep, confirmed ability to accept patient today prior to 2:00 p.m. Paper scripts will be sent with patient along with script for PT/OT.
Patient's Lisbeth here visiting, aware of plan for d/c today. Patient scheduled for 1:00 p.m. ambulance transport. CM will continue to follow for all discharge planning needs.
Plan; d/c to [facility], 1:00 p.m. ambulance transport
Report: [phone], ask for nurse in Memory Care
[2025-04-10] MEDS: ABILIFY 1 MG PO (11:38)
[2025-04-10 12:43] VITALS: BP 109/64
--- NOTE | 2025-04-10 13:32 | W.DCSUMMARY ---
Discharge Summary
Discharge Data
Date of Admission: 04/02/25
Date of Discharge: 04/10/25
Total time spent discharging patient (in min): 40
-
Pending Results: No
Hospital Course
Principal Diagnosis:
Progressive dementia with behavioral disturbance
Chronic Diagnoses:�
Coronary Artery Disease
Hx PCI 2009
Hyperlipidemia
Hypothyroidism on Synthroid 50 mcg p.o. daily
Depression, on Lexapro 10 mg p.o. daily
Consultations:�
Psychiatry
Procedures:�
None
Clinical course:�
This is a 84-year-old male with past medical history as stated above, who presented with inability to care for himself at home.
Problem 1:
Progressive dementia with behavioral disturbance.
His is unable to take care of him at home.
To help with his sundowning/behavioral disturbance, Abilify 1 mg at noon was added. He can also continue with Abilify 3 mg at 8 PM.
Melatonin 5 mg at 9 PM was added this admission which she can continue going forward.
He was discharged to memory care unit.
As for the rest of his medical problems, they were stable during his hospital stay.
Discharge Plan
-
Patient Disposition: Residential/SNF
Discharge Diagnosis/Procedures: Progressive Dementia with behavioral disturbance/sundowning;
Coronary Artery Disease, with history of PCI 2009;
Hyperlipidemia
Condition: Fair
Diet: As tolerated
Activity: As tolerated
Driving Restrictions: No driving
Referrals:
Devaughn Gaston MD [Family Provider, [facility]] - in less than 1 week
Prescriptions:
New
aripiprazole 2 mg Tablet
3 mg PO DAILY@2000 Qty: 30 0RF
aripiprazole 2 mg Tablet
1 mg PO DAILY@1200 Qty: 30 0RF
aspirin 81 mg Tablet,Delayed Release (Dr/Ec)
81 mg PO DAILY Qty: 30 0RF
levothyroxine 50 mcg Tablet
50 mcg PO DAILY Qty: 30 0RF
escitalopram oxalate 10 mg Tablet
10 mg PO DAILY Qty: 30 0RF
melatonin 5 mg Tablet
5 mg PO HS@2100 Qty: 30 0RF
atorvastatin 20 mg Tablet
20 mg PO DAILY Qty: 30 0RF
Discontinued
levothyroxine 50 MCG tablet
50 mcg PO DAILY
aspirin 81 MG tablet,delayed release (DR/EC)
81 mg PO QPM
simvastatin 40 MG tablet
40 mg PO HS
escitalopram oxalate [Lexapro] 10 mg Tablet
10 mg PO DAILY
aripiprazole 2 mg Tablet
3 mg PO HS
Discharge Orders:
Discharge Patient (As Directed); Ordered 04/10/25
Ordered By: Leeanne Jane
Discharge Date and Time
Discharge Date/Time: 04/10/25 13:29
Print Language: BELIZEAN
== END 2025-04-10 13:29 | disposition home or self-care (01) ==
LOC: 4 WEST ACU 19:16
PROVIDERS: ADMITTING PHYSICIAN Student in an Organized Health Care Education/Training Program; ATTENDING PHYSICIAN Internal Medicine; CONSULT PHYSICIAN Psychiatry & Neurology Psychiatry; EMERGENCY PHYSICIAN Student in an Organized Health Care Education/Training Program; FAMILY PHYSICIAN Family Medicine
DX: F91.9 Conduct disorder, unspecified (principal); F03.918 Unspecified dementia, unspecified severity, with other behavioral disturbance; I25.10 Atherosclerotic heart disease of native coronary artery without angina pectoris; E03.9 Hypothyroidism, unspecified; E78.5 Hyperlipidemia, unspecified; F32.A Depression, unspecified; Z66 Do not resuscitate; Z79.890 Hormone replacement therapy; Z79.899 Other long term (current) drug therapy; Z95.5 Presence of coronary angioplasty implant and graft; Z75.1 Person awaiting admission to adequate facility elsewhere
CPT/HCPCS: 80053; 81003; 81015; 85025; 87086; 92523; 92610; 93005; 97116; 97162; 97166; 97530; 99284; G0378; J2358

== ENCOUNTER 2025-07-24 22:38 | Observation (INO) | payer OTHER, SELFPAY ==
[2025-07-24] VITALS (7 sets, daily range): BP systolic 98–117; BP diastolic 52–73; BMI 22.1
[2025-07-24 13:02] LABS: Hematocrit 40.9 % (39.0-52.0); Hemoglobin 13.7 g/dL (13.0-18.0); Mean Corp Hgb Conc. 33.5 g/dL (33.0-37.0); Mean Corpuscular Volume 92.3 fL (80.0-94.0); Nucleated Red Blood Cells % 0 % (-); Platelet Count 164 10^3/uL (130-400); Red Cell Dist. Width 14.3 % (11.5-14.5)
[2025-07-24 13:20] LABS: ALT (SGPT) 26 U/L (0-50); AST (SGOT) 28 U/L (17-59); Albumin 4.5 g/dl (3.5-5.0); Alkaline Phosphatase 100 U/L (38-126); Blood Urea Nitrogen 28 mg/dl (9-20); Calcium 9.5 mg/dl (8.4-10.2); Carbon Dioxide 26 mmol/L (22-30); Chloride 104 mmol/L (98-107); Glucose 93 mg/dl (70-99); Potassium 4.3 mmol/L (3.5-5.1); Sodium 138 mmol/L (135-145); Total Protein 7.3 g/dl (6.3-8.2); eGFR > 60.00
[2025-07-24 13:25] LABS: COVID-19 Antigen Negative (Negative)
--- NOTE | 2025-07-24 16:44 | ED.GENMED ---
History of Present Illness
General
Chief Complaint: Weakness
Source: spouse
Exam Limitations: clinical condition and dementia
Time Seen by Provider: 07/24/25 16:37
History of Present Illness
History of Present Illness:
See MDM
Past History
Past History
ED Past Medical History: CAD, [place] and Other (Dementia)
ED Past Surgical History: Cardiac (Stents)
Social History
Tobacco: Non-smoker
Alcohol: None
Drug: None
Personal:
Living: with family
Employment: Retired
Family History
Family History: Other (Noncontributory)
Phy Exam
Physical Exam
Physical Exam:
See MDM
Course
Orders/Labs/Results
Orders:
Orders
07/24/25 12:43
COVID-19 Antigen Urgent
Source: Nasal Swab
Complete Blood Count/With Diff Urgent
Comprehensive Metabolic Panel Urgent
Influenza A+B Rapid Molecular Urgent
HOLLY Source: Nasal Swab
Specimen Description:
07/24/25 16:43
0.9% Sodium Chloride 1000 ml [Nss] 1,000 ml IV BOLUS
CR Chest - 2 Views Urgent
Comment:
Reason For Exam: altered, cough
07/24/25 19:15
CT Head W/o Iv Contrast Urgent
Comment:
Reason For Exam: confused and altered
07/24/25 19:25
Straight cath- Treatment ONCE
07/24/25 20:51
Urinalysis Reflex To Culture Urgent
Date Specimen was Collected: 07/24/25
Time Specimen was Collected: 20:50
Urine Microscopic Reflex Cult Urgent
Abnormal Lab Results
07/24/25 07/24/25
12:43 20:51
RBC 4.43 L 10^6/uL
(4.70-6.10)
MPV 10.6 H fL
(7.4-10.4)
Absolute Neuts (auto) 7.0 H 10^3/uL
(1.4-6.5)
Absolute Monos (auto) 0.9 H 10^3/uL
(0.1-0.6)
Lymphocytes % 12.6 L %
(20.5-51.1)
Monocytes % 9.9 H %
(1.7-9.3)
BUN 28 H mg/dl
(9-20)
Ur Occult Blood Reflex 4+ A
(Negative)
Urine RBC 80-90 A /HPF
(0-2)
Urine Bacteria (Reflex) Few A
(Negative)
Urine Albumin (Reflex) 2+ A
(Neg - Trace)
07/24/25 12:43
07/24/25 12:43
Vital Signs
Initial and Last Documented VS:
Initial Vital Signs
Temp Pulse Resp BP Pulse Ox
97.9 F 66 19 111/70 98
07/24/25 12:25 07/24/25 12:25 07/24/25 12:25 07/24/25 12:25 07/24/25 12:25
Last Documented Vital Signs
Temp Pulse Resp BP Pulse Ox
98.5 F 62 18 98/61 95
07/24/25 17:13 07/24/25 21:00 07/24/25 21:10 07/24/25 21:00 07/24/25 21:00
MDM/Problems Addressed
Differential Diagnosis Includes:
Note:
CHIEF COMPLAINT(S)
Sleepiness and change in mentation.
HISTORY OF PRESENT ILLNESS
The patient is an 84-year-old male who presents with increased sleepiness and changes in alertness over the past three days. According to the family, the patient has been constipated and experiencing hiccups. There are concerns of possible pneumonia
or urinary tract infection as causes for these symptoms. The patient has also been noted to have decreased oral intake, which may warrant an overnight admission for further evaluation and management. Blood work done seems normal, but to rule out
pneumonia and assess for respiratory issues causing hiccups, a chest x-ray will be performed. Urinalysis is also considered to explore the potential for a urinary tract infection.
PHYSICAL EXAM
General: Alert, no acute distress.
Skin: Warm, dry.
Head: Normocephalic, atraumatic
Neck: Appears supple, trachea midline.
Eyes, Ears, Nose, Mouth, and Throat: Moist mucous membranes
Cardiovascular: No signs of cyanosis
Respiratory: Respirations are non-labored.
Abdomen: Non-distended
Musculoskeletal: No deformities
Neurological: Sleepy and lethargic.
Psychiatric: Cooperative, appropriate mood and affect.
PLAN
- Perform a chest x-ray to evaluate for pneumonia or other respiratory issues.
- Conduct urinalysis to rule out a urinary tract infection.
- Consider admission for overnight observation to manage decreased oral intake and potential need for antibiotics and intravenous fluids.
- Inform family that the patient will be kept overnight for further observation and care.
DIFFERENTIAL DIAGNOSIS
The Differential Diagnosis includes, in no particular order and is not limited to:
- Urinary tract infection
- Pneumonia
- Dehydration
- Constipation
- Medication side effects
- Metabolic imbalances
- Neurological disorder
- Infections
- Cardiovascular event
- Hepatic dysfunction
SUMMARY OF ENCOUNTER
The patient was seen in the emergency department due to increased sleepiness and a change in mental status over the last three days. Blood work returns normal, prompting the decision to perform a chest x-ray and urinalysis to check for pneumonia or
urinary tract infection. The patient is also experiencing constipation and decreased oral intake. Given these symptoms, the plan includes overnight admission for further evaluation and management, including potential administration of intravenous
antibiotics and fluids.
DISPOSITION
Admit for observation and further evaluation.
SUMMARY OF ENCOUNTER
The patient presented with altered mental status. The family was concerned due to decreased oral intake. On examination, he appeared sleepy. He was afebrile and showed no signs of meningismus or focal neurological deficits. Workup revealed no
evidence of metabolic encephalopathy. Urinalysis showed hematuria, which is likely due to catheterization for urine collection. A CT scan was negative for acute pathology.
DISPOSITION
Admit for further workup and evaluation due to altered mental status and decreased oral intake.
PLAN
Admit the patient for observation and further evaluation to investigate the causes of the altered mental status and decreased oral intake.
INDEPENDENT REVIEW OF LABS AND INTERPRETATION OF TESTS
- My independent review of urinalysis indicates hematuria, likely due to catheterization for urine collection.
- My independent interpretation of the CT scan shows no acute pathology.
MEDICAL DECISION MAKING
- Number and Complexity of Problems Addressed: Chronic conditions affecting care include altered mental status and decreased oral intake. Differential Diagnosis includes urinary tract infection, pneumonia, dehydration, constipation, medication side
effects, metabolic imbalances, neurological disorder, infections, cardiovascular event, and hepatic dysfunction.
- Data:
- Category 1: Urinalysis and CT scan were reviewed.
- Category 2: Input was obtained from the family as independent historians.
DIAGNOSIS
- Altered mental status, unspecified (ICD-10: R41.82)
- Decreased oral intake, unspecified (ICD-10: R63.0)
*Pulse Oximetry
SaO2: 98
Patient hypoxic: no
*Critical Care Note
Total Time (30-74mins, 75-104mins- exclusive of procedures): Not Applicable
ED Attending Note
-
Portions of this chart may have been created with voice recognition software.� Occasional wrong word or��sound alike� substitutions may have occurred due to the inherent limitations of voice recognition software.
Discharge Plan
Departure
Patient Disposition: Admit
Date of Disposition: 07/24/25
Time of Disposition: 21:44
Presentation/result/management discussed w/ accepting MD/DO: Hospitalist
Discharge Problem:
Acute alteration in mental status, Decreased oral intake
Prescriptions:
No Action
risperidone [Risperdal] 0.5 mg Tablet
0.5 mg PO BID
atorvastatin 20 mg tablet
20 mg PO DAILY
aspirin 81 mg tablet,delayed release (DR/EC)
81 mg PO DAILY
levothyroxine 50 mcg tablet
50 mcg PO DAILY
escitalopram oxalate 10 mg tablet
10 mg PO DAILY
aripiprazole 2 mg tablet
1 mg PO DAILY@1200
aripiprazole 2 mg tablet
3 mg PO HS
melatonin 5 mg tablet
5 mg PO HS
Referrals:
Abhijeet Russell MD [Family Provider, Family Practice]
Interventions
Interventions:
*General Assessment Last Done: 07/24/25 12:27
*Neglect/Abuse Screening Last Done: 07/24/25 21:11
*ED COVID-19 Vaccine History Last Done: 07/24/25 12:27
*ED Influenza Vaccine History Last Done: 07/24/25 12:27
[facility] Fall Risk Assessment Tool Last Done: 07/24/25 21:10
*Risk Screen - Suicide (C-SSRS) Last Done: 07/24/25 21:11
ED- Cardiac Assessment Last Done: 07/24/25 17:10
ED- Neurological Assessment Last Done: 07/24/25 17:10
ED- Pulmonary Assessment Last Done: 07/24/25 17:10
Discharge Date and Time
Print Language: MEXICAN
[2025-07-24] MEDS: NSS 1000 IV (17:15)
[2025-07-24 21:00] LABS: Urine Character Slightly Cloudy (Clear)
[2025-07-24 21:06] LABS: Urine Red Blood Cell 80-90 /HPF (0-2); Urine Red Cell Cast 0-2 /LPF
--- NOTE | 2025-07-24 21:51 | HPS.HSE ---
Family Physician
-
Family Physician: Abhijeet Russell
Chief Complaint
-
Lethargy
History of Present Illness
Patient is an 84 y/o male past medical history of cornary artery disease, and dementia with behavioral disturbance who presents with lethargy. Family notes patient has had decreased oral intake over the past few days. There are reports of
associated constipation. During most of his time in the emergency department patient was noted to be very sleepy however upon my evaluation patient is awake, alert and attempting to climb out of bed.
Medical History
Past Medical History
Past Medical History: Reports Other
Additional Past Medical History:
Dementia with Behavioral Disturbance
Coronary Artery Disease s/p PCI
Hyperlipemia
Hypothyroidism
Depression
Past Surgical History: Reports None
Social History
Unable to obtain full social history at this time due to: Dementia
Living: Other ([facility])
Family History
Family History: Not pertinent
Allergies / Home Medications
Allergies reflects when Allergies were last updated in [facility].
Home Medications with original date entered in [facility]
Allergy/Medication List:
Allergies
Allergy/AdvReac Type Severity Reaction Status Date / Time
No Known Allergies Allergy Verified 07/24/25 12:27
Home Medications
aripiprazole 2 mg tablet 1 mg PO DAILY@1200 Mental Health/Anxiety 07/24/25
aripiprazole 2 mg tablet 3 mg PO HS Mental Health/Anxiety 07/24/25
aspirin 81 mg tablet,delayed release 81 mg PO DAILY Blood Clot Prevention/Tx 07/24/25
atorvastatin 20 mg tablet 20 mg PO DAILY High Cholesterol 07/24/25
escitalopram oxalate 10 mg tablet 10 mg PO DAILY Mental Health/Anxiety 07/24/25
levothyroxine 50 mcg tablet 50 mcg PO DAILY Thyroid 07/24/25
melatonin 5 mg tablet 5 mg PO HS Sleep 07/24/25
risperidone 0.5 mg tablet (Risperdal) 0.5 mg PO BID Mental Health/Anxiety 07/24/25
Review of Systems
-
Unable to obtain full review of systems at this time due to: Dementia
Physical Exam
Vital Signs
Vital Signs
Temp Pulse Resp BP Pulse Ox
98.5 F 62 18 98/61 95
07/24/25 17:13 07/24/25 21:00 07/24/25 21:10 07/24/25 21:00 07/24/25 21:00
Physical Exam
General: Well Developed and Well Nourished
HEENT: Anicteric and Moist mucous membranes
Respiratory: Clear and Non Labored Respirations
Cardiac: S1/S2 and Regular Rhythm
GI: Soft and Non Tender
Rectal: Deferred by Provider
Musculoskeletal: No Clubbing and No Cyanosis
Skin: Warm and Dry
Neuro: Awake, Alert and No Motor Deficits; No Oriented
Psych: Confused
Laboratory Results
-
07/24/25 12:43
07/24/25 12:43
Laboratory Results
Total Bilirubin 1.1 mg/dl (0.2-1.3) 07/24/25 12:43
AST 28 U/L (17-59) 07/24/25 12:43
ALT 26 U/L (0-50) 07/24/25 12:43
Alkaline Phosphatase 100 U/L (38-126) 07/24/25 12:43
Data Reviewed
-
CT Scan: Report Reviewed by me
Lab Data: Labs Reviewed by me
Impression/Plan
-
Lethargy, possibly related to over medication
-Patient started on multiple medications for behavioral disturbance during prior admission
-Consult Psych to re-evaluate his medication regimen
-For now will decrease Abilify dose slightly, and add instructions to hold for sedation
Constipation
-Start MiraLAX
Dementia with Behavioral Disturbance
-Decreased evening Abilify from 3mg to 2mg - Continue Abilify 1mg in the afternoon
-Continue Risperdal
Coronary Artery Disease
Hyperlipidemia
-Continue aspirin and atorvastatin
Depression
-Continue escitalopram
Hypothyroidism
-Continue levothyroxine
DVT proph: Lovenox
Code Status: DNR
[2025-07-24] MEDS: ABILIFY 2 MG PO (22:20)
--- NOTE | 2025-07-24 22:29 | W.PN.UPDATE ---
Update Note
Progress Note Update
Patient seen in conjunction with nurse practitioner. I agree with the findings and physical. I concur with assessment and plan unless otherwise stated.
Briefly, is a 84-year-old with past medical history segment for CAD status post PCI, hyperlipidemia, hypothyroid, depression and recent diagnosis of progressive dementia who presents into the emergency department with increasing somnolence and
decreased p.o. intake.
During his last admission patient was diagnosed with progressive dementia and was seen by psychiatry. He was started on aripiprazole 1 mg in the afternoon and 3 mg at bedtime as well as melatonin at bedtime. Patient initially has been doing well
however family reports that is had decreased alertness and increased sleepiness in the past 3 days. They were concern for typical infections and. Has had no falls there was no head trauma. Blood work was done at outpatient which seemed normal but
patient was sent to the emergency department to rule out other infectious process as patient was having hiccups and not eating regularly.
In the emergency department patient was afebrile, blood pressure was 98/50 with a pulse of 74 and oxygen saturation of 97% on room air. His CT of the head was unremarkable. His chest x-ray shows no infiltrates. Urinalysis was negative. His COVID
and influenza testing were negative. CBC was completely normal. Electrolytes BUN and creatinine were all normal.
Assessment and plan
84-year-old with increasing somnolence in the setting of progressive dementia likely/possibly secondary to medication titration. He is awake in the emergency department is he is try to get out of bed but not particularly excessively agitated. No
history can be obtained from the patient due to degree of advanced dementia.
� Will admit to MedSurg
� Will consult psych for medication titration, we will be giving aripiprazole tonight but otherwise hold aripiprazole during the day
� Hold melatonin
� Continue is escitalopram and Risperdal for now
� No evidence of an acute infectious process or acute ischemic process.
DVT prophylaxis�Lovenox subcu
CODE STATUS�DNR
[2025-07-25] VITALS (10 sets, daily range): BP systolic 90–112; BP diastolic 53–63; BMI 21.3
[2025-07-25] MEDS: RISPERDAL M-TAB (ORALLY DISINTEGRATING) 0.5 MG PO (01:07)
[2025-07-25] MEDS: SYNTHROID 50 MCG PO (05:39)
[2025-07-25] MEDS: NSS 1000 IV ×2 (06:35→18:39)
[2025-07-25] MEDS: RISPERDAL 0.5 MG PO (09:32)
[2025-07-25] MEDS: LEXAPRO 10 MG PO (09:32)
[2025-07-25] MEDS: MIRALAX 17 GRAMS PO (09:33)
[2025-07-25] MEDS: ASPIR LOW (ENTERIC COATED) 81 MG PO (09:33)
[2025-07-25] MEDS: LIPITOR 20 MG PO (09:33)
--- NOTE | 2025-07-25 10:04 | CM ---
Chart reviewed
Unable to review [facility] pt with dementia
LVM with Lisbeth
He lives in [facility]
phone number [phone]
Confirmed he is a resident
He needs assistance with all ADLs
PCP Abhijeet Russell
DCP is to return back to [facility]
CM will continue to follow up for any dcp needs
[2025-07-25] MEDS: ABILIFY 1 MG PO (12:24)
--- NOTE | 2025-07-25 15:12 | W.PN.HOSP.TC ---
Today's Communication/Plan
-
Assessment / Plan
Assessment / Plan
General: No Apparent Distress, Comfortable and Conversant
HEENT: NormoCephalic, Moist mucous membranes, Atraumatic
Respiratory: Clear and Non Labored Respirations
Cardiac: Regular rhythm, heart rate 80
GI: Soft, Non Tender, Non Distended and Normal Bowel Sounds
Musculoskeletal: No Edema, no deformity
Skin: Warm and dry
: NO Vasquez
Neuro: Awake, Alert, Nonfocal/grossly intact, confused
Psych: Calm and cooperative
Mr. Ferro is an 84-year-old male with a medical history of dementia with behavioral disturbance, CAD, and hypothyroidism who was sent from his memory care unit due to lethargy. His vital signs have remained stable since admission and his lab
work has been unremarkable.
Mental status change in the setting of dementia with behavioral disturbance:
- Sent from his memory care unit due to reported lethargy, has not been lethargic since arrival
- Suspect this may have something to do with his medications, his Abilify dose has been decreased slightly for now with holding parameters for sedation
- Psychiatry consulted for medication evaluation
- Haldol as needed for agitation
- Anticipate discharge back to memory care unit in the next 24 hours
Constipation:
- Chronic
- Continuing bowel regimen with scheduled MiraLAX and Colace with holding parameters for soft stools
CAD:
- Stable
- Continue aspirin and statin
Hypothyroidism:
- Continue home levothyroxine 50 mcg daily
DVT prophylaxis: Lovenox
CODE STATUS: DNR
Anticipated Discharge: Within 24 hours
Subjective/Interval History
-
Date of Service: July 25, 2025
Patient was seen and examined at bedside this morning. Calm and comfortable appearing.
Objective Data
-
Vital Signs:
Vital Signs
Temp Pulse Resp BP Pulse Ox
98.2 F 77 27 92/58 96
07/25/25 03:27 07/25/25 02:47 07/25/25 02:47 07/25/25 08:02 07/25/25 00:45
Review of Systems
-
Unable to obtain full review of systems at this time due to: Dementia
Physical Exam
-
General: No Apparent Distress
--- NOTE | 2025-07-25 15:51 | CS.PSYCHR ---
Consult Summary - Psychiatry
-
Patient seen by me on 07/25/2025 from 3:25pm-3:45pm
Chart reviewed. Psychiatry consult for medication management in the context of dementia with behavioral disturbances. 84 to male admitted 07/25/2025 from [facility] secondary to increased lethargy and decreased PO intake. Patient currently
sitting up in bed, pleasant and agreeable but confused. He is oriented to self. He does not know where we are or why. His of 52 years is present at bedside and states a new medication (Risperdal) was added to his regimen over the last couple
weeks and since then she has noticed gradual worsening of condition resulting in admission. She states that per the [facility] patient was becoming agitated so the risperdal trial was initiated.
MSE- sitting up in bed. pleasant, cooperative. markedly confused. oriented to self. unable to tell me where we are, why we are here or the date.
PMH- CAD, HLD, hypothyroidism, dementia
Past psych- depression; dementia with behavioral disturbances; was admitted here in april 2025 and seen by psychiatry. Medications at discharge were melatonin 5mg HS, lexapro 10mg daily and abilify 1mg at noon and 3mg HS. risperdal 0.5mg BID was
added to regimen in past couple weeks
Social- 52 years. lives at [facility]; requires assistance with all ADLs.
A/P- 84 yo male with dementia with behavioral disturbances and recent increased lethargy/decreased PO intake. Suspect addition of Risperdal to the psychiatric medications he was already taking could be the cause of his altered mental status. Will
stop standing Risperdal to decrease polypharmacy and associated risks. Will continue Abilify at the currently ordered 2mg HS and 1mg at noon as well as continue the melatonin 5mg HS and lexapro 10mg daily. Additionally he has a Haldol IV PRN severe
agitation available. if used, recommend checking EKG to monitor qtc. Will see how patient does over night and make further decisions on how to proceed with medications tomorrow. Plan discussed with . She is agreeable.
[2025-07-25] MEDS: LOVENOX 40 MG SC (17:06)
[2025-07-25] MEDS: HALDOL 1 MG IV ×2 (18:20→23:20)
[2025-07-25] MEDS: COLACE PO (19:46)
[2025-07-25] MEDS: ABILIFY 2 MG PO (21:25)
[2025-07-26 01:18] VITALS: BP 132/72
[2025-07-26 07:43] VITALS: BP 137/66
[2025-07-26] MEDS: NSS 1000 IV (08:50)
[2025-07-26] MEDS: COLACE PO (08:53)
[2025-07-26] MEDS: LIPITOR 20 MG PO (08:53)
[2025-07-26] MEDS: SYNTHROID 50 MCG PO (08:53)
[2025-07-26] MEDS: MIRALAX PO (08:53)
[2025-07-26] MEDS: ASPIR LOW (ENTERIC COATED) 81 MG PO (08:53)
[2025-07-26] MEDS: LEXAPRO 10 MG PO (08:55)
[2025-07-26] MEDS: ABILIFY 1 MG PO (11:37)
--- NOTE | 2025-07-26 11:57 | W.PN.UPDATE ---
Update Note
Progress Note Update
Patient seen by me on 07/26/2025 from 11:10am-11:20am
Psychiatry follow up for medication management in context of dementia with behavioral disturbances. Patient is sitting up in bed and presents alert, pleasant and confused. He is without complaints. Review of chart indicates need last evening for
Haldol 1mg IV twice for agitation. Qtc this morning 428. Patient's present at bedside and states he looks markedly better than he did prior to admission. She cites standing risperdal that was started at [facility] as source of altered MS. We discussed
increasing nighttime Abilify back to 3mg HS to see if patient has an easier night. We also discussed how a second antipsychotic as a standing medication is not the best way to manage his behaviors at the [facility] and if PRNs are an option there.
We also discussed titrating Abilify further if needed to see if need for a PRN decreases. She is in agreement.
A/P- 84 yo male with dementia with behavioral disturbances and recent increased lethargy/decreased PO intake, doing better now with discontinuation of standing risperdal. Will increase nighttime Abilify to 3mg HS to see if he has a better night and
decreased need for PRN intervention. Will continue Abilify 1mg at noon with understanding that this too could be titrated. Will continue the melatonin 5mg HS and lexapro 10mg daily. He will continued to have Haldol IV PRN severe agitation available.
if used, recommend checking EKG to monitor qtc. Will see how patient does today and overnight and make further decisions on how to proceed with medications tomorrow. Plan discussed with . She is agreeable.
[2025-07-26 15:41] VITALS: BP 155/85
--- NOTE | 2025-07-26 16:59 | W.PN.HOSP.TC ---
Today's Communication/Plan
-
Assessment / Plan
Assessment / Plan
General: No Apparent Distress, Comfortable and Conversant
HEENT: NormoCephalic, Moist mucous membranes, Atraumatic
Respiratory: Clear and Non Labored Respirations
Cardiac: Regular rhythm, heart rate 70
GI: Soft, Non Tender, Non Distended and Normal Bowel Sounds
Musculoskeletal: No Edema, no deformity
Skin: Warm and dry
: NO Vasquez
Neuro: Awake, Alert, Nonfocal/grossly intact, confused
Psych: Calm and cooperative
Mr. Ferro is an 84-year-old male with a medical history of dementia with behavioral disturbance, CAD, and hypothyroidism who was sent from his memory care unit due to lethargy. His vital signs have remained stable since admission and his lab
work has been unremarkable.
Mental status change in the setting of dementia with behavioral disturbance:
- Sent from his memory care unit due to reported lethargy, has not been lethargic since arrival
- Suspect this may have something to do with his medications as he was recently started on scheduled risperidone
- He was evaluated in the hospital by psychiatry who made several medication changes
- Will continue with Abilify 1 mg at noon and 3 mg at night, discontinue risperidone
- Haldol as needed for agitation, QTc okay, will monitor
- Anticipate discharge back to memory care unit in the next 24 hours
Constipation:
- Chronic
- Continuing bowel regimen with scheduled MiraLAX and Colace with holding parameters for soft stools
CAD:
- Stable
- Continue aspirin and statin
Hypothyroidism:
- Continue home levothyroxine 50 mcg daily
DVT prophylaxis: Lovenox
CODE STATUS: DNR
Anticipated Discharge: Within 24 hours
Subjective/Interval History
-
Date of Service: July 26, 2025
Patient was seen and examined at bedside this morning. Attempting to eat blueberry pancakes.
Objective Data
-
Vital Signs:
Vital Signs
Temp Pulse Resp BP Pulse Ox
97.6 F 68 16 155/85 96
07/26/25 15:41 07/26/25 15:41 07/26/25 15:41 07/26/25 15:41 07/26/25 15:41
I&O
07/25/25 07/26/25 07/27/25
06:59 06:59 06:59
Intake Total 480 / 480
Output Total 250 / 250
Balance 230 / 230
Review of Systems
-
Unable to obtain full review of systems at this time due to: Dementia
Physical Exam
-
General: No Apparent Distress
[2025-07-26] MEDS: LOVENOX 40 MG SC (18:02)
[2025-07-26] MEDS: COLACE 100 MG PO (20:48)
[2025-07-26] MEDS: ABILIFY 3 MG PO (20:48)
[2025-07-26 23:05] VITALS: BP 124/77
--- NOTE | 2025-07-27 05:29 | PTCARENOTE ---
Patient oriented to self. Thought he was in [place] and the year was 2027. When ready for bed, we put on a movie for him to watch and fell asleep while watching. He awoke a handful of times and set off the bed alarm. Overall he was pleasant and easy to
redirect if needed. Provided patient with water and assisted with toileting throughout the night.
[2025-07-27] MEDS: SYNTHROID 50 MCG PO (06:18)
[2025-07-27 07:00] VITALS: BP 93/55
[2025-07-27] MEDS: LIPITOR 20 MG PO (07:49)
[2025-07-27] MEDS: ASPIR LOW (ENTERIC COATED) 81 MG PO (07:49)
[2025-07-27] MEDS: LEXAPRO 10 MG PO (07:49)
[2025-07-27] MEDS: MIRALAX 17 GRAMS PO (07:50)
[2025-07-27] MEDS: COLACE 100 MG PO ×2 (07:50→21:19)
[2025-07-27] MEDS: ABILIFY 1 MG PO (11:53)
--- NOTE | 2025-07-27 12:28 | W.PN.HOSP.TC ---
Today's Communication/Plan
-
dc
Assessment / Plan
Assessment / Plan
Mr. Ferro is an 84-year-old male with a medical history of dementia with behavioral disturbance, CAD, and hypothyroidism who was sent from his memory care unit due to lethargy. His vital signs have remained stable since admission and his lab
work has been unremarkable.
Mental status change in the setting of dementia with behavioral disturbance:
- Sent from his memory care unit due to reported lethargy, has not been lethargic since arrival; today alert and oriented to self. No agitation. No lethargy.
- Suspect this may have something to do with his medications as he was recently started on scheduled risperidone
- He was evaluated in the hospital by psychiatry who made several medication changes
- Will continue with Abilify 1 mg at noon and 3 mg at night, discontinued risperidone
- Haldol as needed for agitation, QTc okay, will monitor
- Anticipate discharge back to memory care unit today
Constipation:
- Chronic
- Continuing bowel regimen with scheduled MiraLAX and Colace with holding parameters for soft stools
CAD:
- Stable
- Continue aspirin and statin
Hypothyroidism:
- Continue home levothyroxine 50 mcg daily
DVT prophylaxis: Lovenox
CODE STATUS: DNR
I am told by RN that patient may want to take him home then back to facility. She herself is sick from flu. Discussed with case management regarding disposition.
Medically stable for discharge.
Anticipated Discharge: Today
Subjective/Interval History
-
Date of Service: July 27, 2025
Pleasantly confused. Voices no specific complaints.
Discussed with RN-no overnight events of agitation.
Objective Data
-
Vital Signs:
Vital Signs
Temp Pulse Resp BP Pulse Ox
98.1 F 55 18 93/55 97
07/27/25 07:00 07/27/25 07:00 07/27/25 07:00 07/27/25 07:00 07/27/25 07:00
I&O
07/26/25 07/27/25 07/28/25
06:59 06:59 06:59
Intake Total 480 / 480 340 / 340
Output Total 250 / 250 100 / 100
Balance 230 / 230 240 / 240
Physical Exam
-
General: No Apparent Distress; Negative Comfortable
Respiratory: Non Labored Respirations; Negative Accessory Resp Muscle Use
Cardiac: Regular Rhythm and S1/S2; Negative Tachycardic
GI: Soft and Nontender
Neuro: Awake and Alert; Negative Oriented
Psych: Calm and Confused; Negative Agitated
[2025-07-27 12:33] VITALS: BP 95/56; O2SAT 98
--- NOTE | 2025-07-27 14:08 | CM ---
CM reviewed chart, reviewed with Hospitalist.
CM spoke with patients , confirmed plan will be for patient to return to [facility].
Phone call to [facility], left message with clinic receptionist to speak with patients nurseVictor Manuel, in regards to patients discharge.
Patient will require ambulance transport back to facility.
CM will continue to follow.
Plan; return to [facility], await call from nurse at facility
--- NOTE | 2025-07-27 14:44 | W.PN.UPDATE ---
Update Note
Progress Note Update
pt seen for assessment. very pleasant, able to tell where he is though no idea how old he is (guesses 89) or what time of year it is. Unable to say where he lives, though knows he will be going back there. No complaints, enjoyed his meals. Would
continue current abilify regiman.
[2025-07-27 15:00] VITALS: BP 88/52
[2025-07-27 15:40] VITALS: BP 99/58
[2025-07-27] MEDS: LOVENOX 40 MG SC (17:15)
[2025-07-27] MEDS: ABILIFY 3 MG PO (21:20)
[2025-07-27 23:36] VITALS: BP 119/68
[2025-07-28] MEDS: HALDOL 1 MG IV (02:32)
[2025-07-28] MEDS: SYNTHROID 50 MCG PO (06:10)
[2025-07-28 08:06] VITALS: BP 126/62
[2025-07-28] MEDS: ASPIR LOW (ENTERIC COATED) 81 MG PO (08:26)
[2025-07-28] MEDS: LEXAPRO 10 MG PO (08:26)
[2025-07-28] MEDS: COLACE PO (08:26)
[2025-07-28] MEDS: MIRALAX PO (08:26)
[2025-07-28] MEDS: LIPITOR 20 MG PO (08:26)
[2025-07-28] MEDS: ABILIFY 1 MG PO (11:43)
--- NOTE | 2025-07-28 12:56 | W.DCSUMMARY ---
Discharge Summary
Discharge Data
Date of Admission: 07/24/25
Date of Discharge: 07/28/25
-
Pending Results: No
Hospital Course
Primary diagnosis:
Change in mental status with lethargy suspected secondary to medication
Secondary diagnosis:
Dementia with behavioral issues
Coronary artery disease
Hypothyroidism
Hospital course:
84-year-old gentleman with dementia and behavioral issues was sent in from memory care unit due to lethargy. After assessment and evaluation it was felt maybe the medication that is the scheduled risperidone was the culprit and with its
discontinuation and his lethargy resolved and he was back to his baseline of being pleasantly confused. No behavioral disturbances noted.
He was noted to be constipated which is chronic. Was put on MiraLAX. He was continued on all other medications as before. He was tolerating Abilify.
Today he is pleasantly confused. Voices no specific complaints. No agitation noted by RN.
Afebrile, pulse 69, blood pressure 126/62.
Alert but not oriented. Nontoxic looking.
Chest was clear. Heart sound S1 plus S2 regular. Abdomen is soft. No tremors noted.
Deemed medically stable for discharge back to his memory care unit.
Consultants on board:
Psychiatry-Janette Frances
Discharge Plan
-
Patient Disposition: Shelter/SNF
Discharge Diagnosis/Procedures: Lethargy from medication
Dementia on medication
Diet: Regular
Activity: As tolerated
Driving Restrictions: No driving
Bathing Restrictions: None
Referrals:
Abhijeet Russell MD [Family Provider, Family Practice] - in less than 1 week
Prescriptions:
New
polyethylene glycol 3350 17 gram Powder In Packet
17 g PO DAILY Qty: 30 0RF
Continued
atorvastatin 20 mg tablet
20 mg PO DAILY
aspirin 81 mg tablet,delayed release (DR/EC)
81 mg PO DAILY
levothyroxine 50 mcg tablet
50 mcg PO DAILY
escitalopram oxalate 10 mg tablet
10 mg PO DAILY
aripiprazole 2 mg tablet
1 mg PO DAILY@1200
aripiprazole 2 mg tablet
3 mg PO HS
melatonin 5 mg tablet
5 mg PO HS
Discontinued
risperidone [Risperdal] 0.5 mg Tablet
0.5 mg PO BID
Discharge Orders:
Discharge Patient (As Directed); Ordered 07/28/25
Ordered By: Froylan Calvert
Discharge Date and Time
Print Language: GUAMANIAN
--- NOTE | 2025-07-28 14:01 | CM ---
CM reviewed chart, patient seen in nursing station, for d/c today.
CM called and left three messages with [facility]- finally connected with Nurse Rush, aware of patient return.
TT to Hospitalist for script for PT/OT.
Phone call to patients jer, Lisbeth, (cell phone) as patient is currently in ED. Aware of pts return to [facility].
Patient scheduled for 5:00 p.m. ambulance transport.
CM will continue to follow.
Plan; return to [facility], 5:00 p.m. ambulance transport
[facility]
Report: [phone]
--- NOTE | 2025-07-28 14:56 | W.PN.UPDATE ---
Update Note
Progress Note Update
pt seen in hallway in lounge chair. had been getting up from bed very often, as well as from lounge chair so moved into nursing station. pleasant, cooperative. states he knows where he is, but does not. guesses month as october. says he is happy. no
further interventions from psychiatry
[2025-07-28 15:45] VITALS: BP 127/70; BP 144/83; PULSE 65; O2SAT 96
[2025-07-28] MEDS: FLUZONE HIGH-DOSE 2025-26 0.5 ML IM (16:30)
== END 2025-07-28 19:01 ==
LOC: 4 WEST ACU 22:38
PROVIDERS: Emergency Medicine; ADMITTING PHYSICIAN Internal Medicine; ATTENDING PHYSICIAN Internal Medicine; CONSULT PHYSICIAN Psychiatry & Neurology Psychiatry; EMERGENCY PHYSICIAN Student in an Organized Health Care Education/Training Program; FAMILY PHYSICIAN Family Medicine
PROC: 3E02340 Introduction of Influenza Vaccine into Muscle, Percutaneous Approach (ICD-10-PCS; 2025-07-28)
DX: R41.82 Altered mental status, unspecified (principal); R53.83 Other fatigue; T43.595A Adverse effect of other antipsychotics and neuroleptics, initial encounter; F03.918 Unspecified dementia, unspecified severity, with other behavioral disturbance; F03.93 Unspecified dementia, unspecified severity, with mood disturbance; F32.A Depression, unspecified; I25.10 Atherosclerotic heart disease of native coronary artery without angina pectoris; E03.9 Hypothyroidism, unspecified; E78.5 Hyperlipidemia, unspecified; K59.00 Constipation, unspecified; Z66 Do not resuscitate; Z11.52 Encounter for screening for COVID-19; Z23 Encounter for immunization; I25.2 Old myocardial infarction; Z79.82 Long term (current) use of aspirin; Z95.5 Presence of coronary angioplasty implant and graft
CPT/HCPCS: 90471; 51701; 70450; 71046; 80053; 81003; 81015; 85025; 87502; 87811; 93005; 96360; 96361; 97163; 99285; G0378